=== PATIENT | female | born 1945 | race Caucasian/White ===

== ENCOUNTER → 2020-04-04 14:38 | Outpatient (BNVA) | payer MEDICARE, BC, SELFPAY | PROVIDERS: PCP Family Medicine; Visit Provider Internal Medicine Cardiovascular Disease | DX: E78.5 Hyperlipidemia, unspecified (principal); I48.0 Paroxysmal atrial fibrillation; Z87.891 Personal history of nicotine dependence | CPT/HCPCS: 93005; 99212 ==

== ENCOUNTER 2020-04-11 10:02 | Outpatient (REF) | payer MEDICARE, BC, SELFPAY ==
[2020-04-11 15:02] LABS: Anion Gap 13 (12-20); Blood Urea Nitrogen 29 mg/dL (9-16); Calcium 9.1 mg/dL (8.4-10.2); Carbon Dioxide 28 mmol/L (22-29); Chloride 103 mmol/L (96-108); Cholesterol 195 mg/dL; Estimated Glomerular Filt Rate 55; Glucose Random 82 mg/dL (60-115); HDL Cholesterol 53 mg/dL; LDL Cholesterol Calculated 124 mg/dl; Sodium 139 mmol/L (135-145); Triglycerides 94 mg/dL
[2020-04-11 15:08] LABS: Alanine Aminotransferase 16 U/L (0-31)
== END 2020-04-11 10:03 | disposition home or self-care (01) ==
LOC: HO.10HDL 10:02
PROVIDERS: Absent Provider Family Medicine; PCP Family Medicine; Visit Provider Internal Medicine Cardiovascular Disease
DX: E78.5 Hyperlipidemia, unspecified (principal); E78.00 Pure hypercholesterolemia, unspecified; I48.0 Paroxysmal atrial fibrillation; I10 Essential (primary) hypertension; Z79.899 Other long term (current) drug therapy
CPT/HCPCS: 36415; 80048; 80061; 82550; 84460

== ENCOUNTER 2020-06-19 08:33 | Outpatient (REF) | payer MEDICARE, BC, SELFPAY ==
[2020-06-19 10:40] LABS: Cholesterol 156 mg/dL; HDL Cholesterol 52 mg/dL; LDL Cholesterol Calculated 85 mg/dl; Triglycerides 95 mg/dL
== END 2020-06-19 08:34 | disposition home or self-care (01) ==
LOC: HO.10HDL 08:33
PROVIDERS: Absent Provider Family Medicine; Visit Provider Internal Medicine Cardiovascular Disease
DX: E78.5 Hyperlipidemia, unspecified (principal)
CPT/HCPCS: 36415; 80061; 82550

== ENCOUNTER 2020-08-04 08:32 | Outpatient (REF) | payer MEDICARE, BC, SELFPAY ==
--- NOTE | ~2020-08-04 | FL_ITS ---
EXAMINATION: XR FLUOROSCOPY UPPER GI WITH AIR CLINICAL INFORMATION: Epigastric pain, GERD and chest pain. COMPARISON: None TECHNIQUE: Routine upper GI contrast study was performed in upright position following oral administration of thick barium and effervescent granules. FINDINGS: Following oral administration of thick barium and effervescent granules in upright view there is normal perfusion bolus from the oral cavity through the pharynx, esophagus into stomach without any evidence of obstruction, narrowing or stricture. No laryngeal penetration or aspiration seen. There is no intraluminal filling defect. On. Placing patient supine and prone the course, caliber and peristalsis of the stomach and duodenal bulb is normal. There is mild gastroesophageal reflux without hiatal hernia. The mucosal pattern of stomach, duodenal bulb and the sweep is normal. FLUOROSCOPY TIME: 1.9 minutes DOSE AREA PRODUCT: 18.7 uGy-m2 (microgray-meter squared) FL/FL upper GI w air IMPRESSION: Mild gastroesophageal reflux without hiatal hernia. Rest of the upper GI exam is unremarkable.
== END 2020-08-04 08:33 | disposition home or self-care (01) ==
LOC: HO.XRAY 08:32
PROVIDERS: Absent Provider Internal Medicine Cardiovascular Disease; PCP Family Medicine; Visit Provider Family Medicine
DX: R10.13 Epigastric pain (principal); K21.9 Gastro-esophageal reflux disease without esophagitis
CPT/HCPCS: 74246

== ENCOUNTER 2020-10-18 10:39 | Outpatient (REF) | payer MEDICARE, BC, SELFPAY ==
[2020-10-18 11:40] LABS: MANUAL DIFF FLAG NO
[2020-10-18 11:43] LABS: Basophils Percent Auto 0.8 % (0-2); Eosinophils Absolute Auto 0.1 X10*3/uL (0.0-0.4); Eosinophils Percent Auto 1.9 % (0-4); Hematocrit 39.2 % (37-47); Hemoglobin 12.8 g/dl (12.0-16.0); Imm Gran Abs Auto 0.01 X10*3/uL (0.00-0.03); Imm Gran Pct Auto 0.2 % (0.0-0.4); Lymphocytes Absolute Auto 2.3 X10*3/uL (1.2-4.9); Lymphocytes Percent Auto 43.5 % (20-40); Mean Corpuscular HGB Conc 32.7 g/dl (31.0-35.0); Mean Corpuscular Hemoglobin 31.6 pg (27.0-33.0); Mean Corpuscular Volume 96.8 fL (80-98); Mean Platelet Volume 10.8 fL (9.4-12.3); Monocytes Absolute Auto 0.6 X10*3/uL (0.1-1.2); Monocytes Percent Auto 10.9 % (2-11); Neutrophils Absolute Auto 2.2 X10*3/uL (2.0-8.3); Neutrophils Percent Auto 42.7 % (45-73); Platelet Count 218 X10*3/uL (160-400); Red Blood Count 4.05 X10*6/uL (4.20-5.50); Red Cell Distribution Width 12.7 % (11.0-16.0); White Blood Count 5.2 X10*3/uL (4.8-10.8)
[2020-10-18 12:10] LABS: Alanine Aminotransferase 16 U/L (0-31); Anion Gap 11 (12-20); Blood Urea Nitrogen 27 mg/dL (9-16); Carbon Dioxide 28 mmol/L (22-29); Chloride 104 mmol/L (96-108); Estimated Glomerular Filt Rate 54; Potassium 5.4 mmol/L (3.3-5.1); Sodium 138 mmol/L (135-145)
== END 2020-10-18 10:40 | disposition home or self-care (01) ==
LOC: HO.LAB 10:39
PROVIDERS: PCP Family Medicine; Referring Provider Internal Medicine Cardiovascular Disease; Visit Provider Family Medicine
DX: I48.0 Paroxysmal atrial fibrillation (principal); E78.00 Pure hypercholesterolemia, unspecified; Z79.899 Other long term (current) drug therapy; Z79.01 Long term (current) use of anticoagulants
CPT/HCPCS: 36415; 80051; 82550; 82565; 84460; 84520; 85025

== ENCOUNTER → 2021-04-05 10:47 | Outpatient (BNVA) | payer MEDICARE, BC, SELFPAY | PROVIDERS: PCP Family Medicine; Visit Provider Internal Medicine Cardiovascular Disease | DX: I48.0 Paroxysmal atrial fibrillation (principal); E78.5 Hyperlipidemia, unspecified | CPT/HCPCS: 93005; 99212 ==

== ENCOUNTER 2021-04-10 09:02 | Outpatient (REF) | payer MEDICARE, BC, SELFPAY ==
[2021-04-10 10:13] LABS: Hemoglobin 12.7 g/dl (12.0-16.0); Mean Corpuscular HGB Conc 32.6 g/dl (31.0-35.0); Mean Corpuscular Hemoglobin 31.3 pg (27.0-33.0); Mean Corpuscular Volume 96.1 fL (80.0-98.0); Mean Platelet Volume 10.9 fL (9.4-12.3); Platelet Count 231 X10*3/uL (160-400); Red Blood Count 4.06 X10*6/uL (4.20-5.50); Red Cell Distribution Width 12.8 % (11.0-16.0); White Blood Count 5.7 X10*3/uL (4.8-10.8)
[2021-04-10 10:39] LABS: Anion Gap 11 (12-20); Blood Urea Nitrogen 22 mg/dL (9-16); Calcium 9.3 mg/dL (8.4-10.2); Carbon Dioxide 29 mmol/L (22-29); Chloride 106 mmol/L (96-108); Cholesterol 157 mg/dL; Estimated Glomerular Filt Rate 55; Glucose Random 88 mg/dL (60-115); HDL Cholesterol 45 mg/dL; LDL Cholesterol Calculated 93 mg/dl; Sodium 141 mmol/L (135-145); Triglycerides 96 mg/dL
== END 2021-04-10 09:03 | disposition home or self-care (01) ==
LOC: HO.10HDL 09:02
PROVIDERS: Absent Provider Family Medicine; Visit Provider Internal Medicine Cardiovascular Disease
DX: I48.0 Paroxysmal atrial fibrillation (principal); I25.10 Atherosclerotic heart disease of native coronary artery without angina pectoris
CPT/HCPCS: 36415; 80048; 80061; 85027

== ENCOUNTER 2021-07-18 12:06 | Outpatient (REF) | payer MEDICARE, BC, SELFPAY ==
[2021-07-18 13:14] LABS: Alanine Aminotransferase 20 U/L (0-31)
== END 2021-07-18 12:07 | disposition home or self-care (01) ==
LOC: HO.10HDL 12:06
PROVIDERS: Visit Provider Family Medicine
DX: E78.00 Pure hypercholesterolemia, unspecified (principal); Z79.899 Other long term (current) drug therapy
CPT/HCPCS: 36415; 82550; 84460

== ENCOUNTER → 2022-04-09 12:38 | Outpatient (BNVA) | payer MEDICARE, BC, SELFPAY | PROVIDERS: PCP Family Medicine; Referring Provider Family Medicine; Visit Provider Internal Medicine Cardiovascular Disease | DX: I48.0 Paroxysmal atrial fibrillation (principal); I49.3 Ventricular premature depolarization; E78.5 Hyperlipidemia, unspecified; Z79.01 Long term (current) use of anticoagulants; Z79.899 Other long term (current) drug therapy | CPT/HCPCS: 93005; 99212 ==

== ENCOUNTER 2022-04-16 08:49 | Outpatient (REF) | payer MEDICARE, BC, SELFPAY ==
[2022-04-16 10:15] LABS: Anion Gap 12 (12-20); Blood Urea Nitrogen 23 mg/dL (9-16); Calcium 9.4 mg/dL (8.4-10.2); Carbon Dioxide 28 mmol/L (22-29); Chloride 105 mmol/L (96-108); Cholesterol 168 mg/dL; Estimated Glomerular Filt Rate 55; Glucose Random 91 mg/dL (60-115); HDL Cholesterol 51 mg/dL; LDL Cholesterol Calculated 97 mg/dl; Potassium 5.1 mmol/L (3.3-5.1); Sodium 140 mmol/L (135-145); Triglycerides 102 mg/dL
== END 2022-04-16 08:50 | disposition home or self-care (01) ==
LOC: HO.LAB 08:49
PROVIDERS: PCP Family Medicine; Referring Provider Family Medicine; Visit Provider Internal Medicine Cardiovascular Disease
DX: I25.10 Atherosclerotic heart disease of native coronary artery without angina pectoris (principal); I48.0 Paroxysmal atrial fibrillation
CPT/HCPCS: 36415; 80048; 80061

== ENCOUNTER 2023-01-20 10:47 | Outpatient (REF) | payer MEDICARE, BC, SELFPAY ==
--- NOTE | ~2023-01-20 | XR_ITS ---
EXAMINATION: XR CHEST CLINICAL INFORMATION: Cough and wheezing. COMPARISON: 01/18/2017 TECHNIQUE: 2 views of the chest were obtained. FINDINGS: The lungs are well expanded. No focal consolidation. No pleural effusion. Cardiac silhouette is unchanged. XR/XR chest 2V IMPRESSION: No acute abnormality.
== END 2023-01-20 10:48 | disposition home or self-care (01) ==
LOC: HO.XRAY 10:47
PROVIDERS: PCP Family Medicine; Visit Provider Family Medicine
DX: R05.9 Cough, unspecified (principal); R06.2 Wheezing
CPT/HCPCS: 71046

== ENCOUNTER 2023-01-22 12:26 | Emergency (ER) | payer MEDICARE, BC, SELFPAY ==
[2023-01-22 12:35] VITALS: BP 165/70; PULSE 69; O2SAT 96
[2023-01-22 12:46] VITALS: BP 171/73; PULSE 68; RESP 17; TEMP 36.7; O2SAT 96; BMI 22.1
--- NOTE | 2023-01-22 13:18 | ED_ITS ---
HPI - General Adult General Chief complaint: General Medical Stated complaint: SUDDEN BURNING SEN FROM LEGS TO HEAD PER EMS Time Seen by Provider: 01/22/23 12:47 Source: patient and family (, return) Mode of arrival: EMS Limitations: no limitations History of Present Illness HPI narrative: 77-year-old female who presents emergency department for evaluation of a warm sensation that started in her feet spread throughout her entire body to cover her chest but spares her head and neck. The patient states she has had cold- like symptoms for 3 weeks with symptoms including cough productive of mucus and postnasal drip. Patient states that she did see her PCP Dr. Olmedo who advised her to take Robitussin DM. She states she was taking 20 mL every 4 hours up to 6 times a day. Patient also states she had an outpatient chest x-ray done at [facility] which was interpreted as no acute abnormalities by the radiologist. The patient states that Friday (01/19/2023-3 days prior to evaluation) at 17:00 hours while she was lying on the sofa she had a sudden onset of a warm sensation that started her feet, traveled up her entire body to cover her chest but spared her neck. She states sensation lasted approximately 2-3 minutes and then resolved. She had no other concerning symptoms associated with this warm feeling. Today, her has an appointment at the [facility] for dental procedure. The patient states she was sitting in a chair waiting when she again had that sensation of warmth starting at her feet extending up her body to her chest but sparing her neck and head. The sensation lasted approximately 5 minutes. She looked at her pulse on her Fitbit and it was 93 which she states is high for her. An ambulance was called hand the patient states that her systolic blood pressure was 187 which is very high for her pain. Related Data Home Medications Medication Instructions Recorded Confirmed esomeprazole magnesium 40 mg 40 mg PO DAILY 04/04/20 04/09/22 capsule,delayed release lorazepam 0.5 mg tablet 0.25 mg PO Q12H PRN 04/04/20 04/09/22 methenamine hippurate 1 gram tablet 1 g PO BID 04/04/20 04/09/22 multivitamin 1 tab PO DAILY 04/04/20 04/09/22 ascorbate calcium (vitamin C) 500 500 mg PO DAILY 04/05/21 04/09/22 mg tablet lactobacillus combination no.9 4 4,000 mmu cells PO DAILY 04/05/21 04/09/22 billion cell capsule (Adult 50 Plus Probiotic) magnesium 200 mg tablet 200 mg PO DAILY 04/09/22 04/09/22 Previous Rx's Medication Instructions Recorded apixaban 5 mg tablet (Eliquis) 5 mg PO BID #180 tabs 03/19/22 atorvastatin 40 mg tablet 40 mg PO DAILY #90 tabs 09/16/22 metoprolol succinate 25 mg 25 mg PO BEDTIME #90 tabs 01/06/23 tablet,extended release 24 hr Allergies Allergy/AdvReac Type Severity Reaction Status Date / Time nitrofurantoin Allergy Intermediate SWELLING Unverified 12/09/19 17:13 [From MACROBID] Sulfa (Sulfonamide Allergy Intermediate SWELLIING Unverified 12/09/19 17:13 Antibiotics) [SULFA (SULFONAMIDE ANTIBIOTICS)] scallops [SCALLOPS] AdvReac Intermediate VOMITING Unverified 12/09/19 17:13 [facility] Past Medical History Medical History Hyperlipidemia Paroxysmal atrial fibrillation Surgical History Hx of hammer toe correction Family History Family History Father AAA (abdominal aortic aneurysm) CVD (cardiovascular disease) Mother No problems noted. Social History Social History Smoked in Last 30 Days: No Use of substances other than those prescribed or required for medical reasons: No Advance Directives: Yes Advance Directives Information Provided: No Advance Directives on File: No Physical Exam ED Vital Signs: Vital Signs - 24 hr 01/22/23 12:46 01/22/23 14:55 Temperature 98.1 F Pulse Rate 68 68 Respiratory Rate 17 16 Blood Pressure 171/73 H 145/71 H Pulse Oximetry 96 96 Oxygen Delivery Method Room Air Room Air BMI result Body Mass Index 22.1 Vital sign initially revealed an elevated blood pressure of 171/73, this improved to 140 5/7 without any treatment. Exam General: Awake, alert in no distress Head: Normocephalic, atraumatic EENT: PERRL, Lids normal, sclera normal, conjunctiva normal, nose normal , ears normal, throat without erythema or exudates Neck: Supple, no adenopathy, no trachea midline or C-spine tenderness Lung: breath sounds symmetric, no wheezing, rales or rhonchi Chest: symmetric movement, nontender Heart: regular rate and rhythm, normal S1, S2 no murmurs or rubs Abdomen: soft, non-tender, nondistended, normal bowel sounds Back: no vertebral tenderness, no CVAT Extremities: no deformities, moves all extremities symmetrically Skin: no rashes, no lesion, normal color and warmth Neuro: Awake, alert, oriented, normal speech, cranial nerves intact, moves all extremities symmetrically Psych: Pleasant, cooperative Medical Decision Making Medical Decision Making MDM Narrative: 77-year-old female who presents emergency department for evaluation of a warm sensation that started in her feet spread throughout her entire body to cover her chest but spares her head and neck x2-with 1 episode being 3 days prior and 2nd episode being prior to coming to emergency department. Patient states that at the time of the event her pulse was 93. Patient has had upper respiratory symptoms including productive cough and postnasal drip x3 weeks. Patient had a negative chest x-ray done yesterday patient has been taking Robitussin DM 10 mL every 4 for several days. Vital signs did reveal elevated systolic blood pressures Physical examination was unremarkable. 15:31 Patient's laboratory evaluation was unremarkable on patient's high sensitive troponin I was below detectable limits the patient's TSH was normal . Patient's 12 EKG was normal and chest x-ray from yesterday was unremarkable. At this time I do not have a clear etiology for the patient's symptoms. Patient was advised to check your blood pressure 3 times a week, record these readings and review them with her PCP She does have follow-up appointment tomorrow with her PCP, she was advised return emergency department sooner if her symptoms get worse if she develops any new symptoms that were concerning to her. Differential Diagnosis Differential Diagnoses: The differential diagnosis associated with the presentation includes Differential diagnosis includes but is not limited to myocardial infarction, stroke, adverse reaction to Robitussin DM, thyroid dysfunction, electrolyte abnormality, paresthesia, pheochromocytoma Admission/Observation Consideration of admission/observation: Escalation of care including admission/observation considered Lab Data My interpretation patient's laboratory evaluation as follows: CBC was normal. CMP was normal. TSH was normal. High sensitive troponin I was below detectable limits. 01/22/23 13:33 01/22/23 13:33 Labs: Lab Results 01/22/23 Range/Units 13:33 WBC 6.4 (4.8-10.8) X10*3/uL RBC 4.06 L (4.20-5.50) X10*6/uL Hgb 12.9 (12.0-16.0) g/dl Hct 38.6 (37.0-47.0) % MCV 95.1 (80.0-98.0) fL MCH 31.8 (27.0-33.0) pg MCHC 33.4 (31.0-35.0) g/dl RDW 12.5 (11.0-16.0) % Plt Count 219 (160-400) X10*3/uL MPV 9.9 (9.4-12.3) fL Immature Gran % (Auto) 0.3 (0.0-0.4) % Neut % (Auto) 57.6 (45-73) % Lymph % (Auto) 31.1 (20-40) % Colbert % (Auto) 8.8 (2-11) % Eos % (Auto) 1.3 (0-4) % Baso % (Auto) 0.9 (0-2) % Lymph # (Auto) 2.0 (1.2-4.9) X10*3/uL Colbert # (Auto) 0.6 (0.1-1.2) X10*3/uL Eos # (Auto) 0.1 (0.0-0.4) X10*3/uL Baso # (Auto) 0.1 (0.0-0.2) X10*3/uL Abs Immat Gran (auto) 0.02 (0.00-0.03) X10*3/uL Absolute Neuts (auto) 3.7 (2.0-8.3) x10*3/uL Absolute Nucleated RBC 0.000 (0.0-0.012) X10*3/uL Nucleated RBC % (auto) 0.0 (0.0-0.2) /100WBC Sodium 136 (135-145) mmol/L Potassium 4.7 (3.3-5.1) mmol/L Chloride 105 (96-108) mmol/L Carbon Dioxide 22 (22-29) mmol/L Anion Gap 14 (12-20) BUN 23 H (9-16) mg/dL Creatinine 0.99 (0.5-1.4) mg/dL Estim Creat Clear Calc 44.5 Estimated GFR 54 Random Glucose 91 (60-115) mg/dL Calcium 9.7 (8.4-10.2) mg/dL Magnesium 2.4 (1.6-2.6) mg/dL Total Bilirubin 0.4 (0.0-1.0) mg/dL AST 32 H (5-31) U/L ALT 21 (0-31) U/L Alkaline Phosphatase 62 (39-117) U/L Troponin I High Sens < 2.7 (<3.5-17.0) ng/L Total Protein 7.4 (6.5-8.0) g/dL Albumin 4.3 (3.5-5.0) g/dL TSH 1.23 (0.32-4.0) uIU/mL Independent Interpretation I performed an independent interpretation of an: EKG Interpretation: My interpretation patient's 12 EKG done at 13:43 hours is as follows: Normal sinus rhythm rate of 64, normal SC interval, QRS duration QTC interval, ST segment depression, inverted T-wave in lead 3, no PACs, no PVCs-this is a normal EKG, EKG dated 01/19/2017 Independent Historian Clinical information obtained from an independent historian. History obtained from or confirmed by: Spouse Discharge Plan Discharge Clinical Impression: Paresthesia Patient Disposition: Home, Self-Care Instructions: Paresthesia (ED) Additional Instructions: Your complete blood count, comprehensive metabolic panel, troponin and thyroid screening test were all normal which is reassuring Your EKG was unremarkable pain Your chest x-ray from yesterday was normal pain At this time I do not have a clear cause for the warm sensation(paresthesia). It is possible could be related to the Robitussin DM that your taking. I want you did check your blood pressures 3 times a week on Mondays, Wednesdays and Fridays, in the morning when your feeling well. Write down these blood pressures and to review them with your doctor to see if you need any change in your blood pressure medications. Follow-up with your doctor as scheduled tomorrow. Please return to the emergency department if your symptoms get worse or if you develop any symptoms that are concerning to you. Prescriptions: No Action Eliquis 5 mg tablet 5 mg PO BID Qty: 180 3RF atorvastatin 40 mg tablet 40 mg PO DAILY Qty: 90 3RF metoprolol succinate 25 mg tablet extended release 24 hr 25 mg PO BEDTIME Qty: 90 3RF methenamine hippurate 1 gram tablet 1 g PO BID esomeprazole magnesium 40 mg capsule,delayed release(DR/EC) 40 mg PO DAILY lorazepam 0.5 mg tablet 0.25 mg PO Q12H PRN multivitamin Tablet 1 tab PO DAILY magnesium 200 mg tablet 200 mg PO DAILY Adult 50 Plus Probiotic 4 billion cell capsule 4,000 mmu cells PO DAILY Rx Instructions: administer with a meal ascorbate calcium (vitamin C) 500 mg tablet 500 mg PO DAILY
--- NOTE | 2023-01-22 13:19 | ECG_ITS ---
Test Reason : PALPITATIONS Blood Pressure : / mmHG Vent. Rate : 064 BPM Atrial Rate : 064 BPM P-R Int : 158 ms QRS Dur : 078 ms QT Int : 410 ms P-R-T Axes : 033 016 032 degrees QTc Int : 422 ms Normal sinus rhythm Normal ECG When compared with ECG of 19-JAN-2017 11:56, No significant change was found Referred By: Aristeo Barcenas Electronically Signed By:AMRITA NIXON MD
[2023-01-22 13:39] LABS: MANUAL DIFF FLAG NO
[2023-01-22 13:42] LABS: Basophils Absolute Auto 0.1 X10*3/uL (0.0-0.2); Basophils Percent Auto 0.9 % (0-2); Eosinophils Absolute Auto 0.1 X10*3/uL (0.0-0.4); Eosinophils Percent Auto 1.3 % (0-4); Hematocrit 38.6 % (37.0-47.0); Hemoglobin 12.9 g/dl (12.0-16.0); Imm Gran Abs Auto 0.02 X10*3/uL (0.00-0.03); Imm Gran Pct Auto 0.3 % (0.0-0.4); Lymphocytes Percent Auto 31.1 % (20-40); Mean Corpuscular HGB Conc 33.4 g/dl (31.0-35.0); Mean Corpuscular Hemoglobin 31.8 pg (27.0-33.0); Mean Corpuscular Volume 95.1 fL (80.0-98.0); Mean Platelet Volume 9.9 fL (9.4-12.3); Monocytes Absolute Auto 0.6 X10*3/uL (0.1-1.2); Monocytes Percent Auto 8.8 % (2-11); Neutrophils Absolute Auto 3.7 x10*3/uL (2.0-8.3); Neutrophils Percent Auto 57.6 % (45-73); Platelet Count 219 X10*3/uL (160-400); Red Blood Count 4.06 X10*6/uL (4.20-5.50); Red Cell Distribution Width 12.5 % (11.0-16.0); White Blood Count 6.4 X10*3/uL (4.8-10.8)
[2023-01-22 13:57] LABS: Alanine Aminotransferase 21 U/L (0-31); Albumin Level 4.3 g/dL (3.5-5.0); Alkaline Phosphatase 62 U/L (39-117); Anion Gap 14 (12-20); Aspartate Amino Transferase 32 U/L (5-31); Bilirubin Total 0.4 mg/dL (0.0-1.0); Blood Urea Nitrogen 23 mg/dL (9-16); Calcium 9.7 mg/dL (8.4-10.2); Carbon Dioxide 22 mmol/L (22-29); Chloride 105 mmol/L (96-108); Creatinine Clr Calc Pharmacy 44.5; Estimated Glomerular Filt Rate 54; Glucose Random 91 mg/dL (60-115); Magnesium 2.4 mg/dL (1.6-2.6); Potassium 4.7 mmol/L (3.3-5.1); Sodium 136 mmol/L (135-145); Total Protein 7.4 g/dL (6.5-8.0)
[2023-01-22 14:01] LABS: Troponin-I High Sensitivity < 2.7 ng/L (<3.5-17.0)
[2023-01-22 14:17] LABS: TSH reflex Free T4 1.23 uIU/mL (0.32-4.0)
[2023-01-22 14:55] VITALS: BP 145/71; PULSE 68; RESP 16; O2SAT 96
== END 2023-01-22 15:57 | disposition home or self-care (01) ==
PROVIDERS: Emergency Provider Emergency Medicine Emergency Medical Services; PCP Family Medicine
DX: R20.2 Paresthesia of skin (principal); I48.0 Paroxysmal atrial fibrillation; E78.5 Hyperlipidemia, unspecified; Z79.01 Long term (current) use of anticoagulants; Z79.899 Other long term (current) drug therapy
CPT/HCPCS: 36415; 80053; 83735; 84443; 84484; 85025; 93005; 99284

== ENCOUNTER → 2023-04-03 10:50 | Outpatient (REF) | payer MEDICARE, BC, SELFPAY ==
--- NOTE | 2023-04-03 10:53 | CA_ITS ---
Transthoracic Echocardiogram Patient (Last, First, Middle): Gudelia Duggan, Gender: Female Date of : 1945 Age: 77 Procedure Date: 04/03/2023 Procedure Type: Transthoracic Echocardiogram Location: OP Height: 167.64 cm Weight: 58.06 kg BSA: 1.65 m2 Heart Rate: 60 bpm BP: 145 / 75 mmHg Budget Technician: AALIYAH Referring MD: Zach Turk MD Mortgage Loan Underwriter: Zach Turk MD Symptoms: I48.0 - Paroxysmal atrial fibrillation Study Quality: Adequate ECG Rhythm: Sinus Conclusions: - 1. Normal LV systolic function with LVEF of 60-65% with grade 1 diastolic dysfunction 2. Mild mitral and aortic regurgitation 3. Normal measured RV systolic pressure 4. No pericardial effusion Findings Left Ventricle Normal left ventricular size, thickness, and systolic function. The visually estimated ejection fraction is between 60-65%. Spectral Doppler is indicative of an impaired relaxation filling pattern. E/E prime ratio is <8, consistent with normal filling pressures. Evidence suggests grade I (mild) diastolic dysfunction. Peak GLS is -18.5%, within normal limits. Right Ventricle Normal right ventricular cavity size and systolic function. Atria The left atrium is likely dilated. There is lipomatous hypertrophy of the interatrial septum. There is no evidence of interatrial shunt. The right atrium is normal in size. Aortic Valve The aortic valve was not well visualized. There is mild calcification of the aortic valve. There is no aortic valve stenosis. There is mild aortic valve regurgitation. Mitral Valve There is mild anterior and posterior mitral leaflet thickening. There is mild mitral valve regurgitation. There is no mitral valve stenosis. Pulmonic Valve The pulmonic valve is likely normal. Tricuspid Valve Normal tricuspid valve structure. There is mild tricuspid valve regurgitation. The right ventricular systolic pressure is normal. The right ventricular systolic pressure is 31 mmHg. Normal right atrial pressure. There is no evidence of pulmonary hypertension. Great Vessels All visible segments of the aorta are normal in size. The pulmonary artery was not well visualized. There is no dilatation of the ascending aorta measuring 3.40 cm. Venous The inferior vena cava is normal in size and collapses greater than 50% with inspiration. Pericardium/Pleural There is no evidence of pericardial effusion. Prior Study Comparison Changes noted compared to prior study dated: 09/29/2019. RV systolic pressure is within normal limits Measurements 2D Linear Measurements IVSd: 1.28 0.6-0.9/0.6-1.0 cm LVIDd: 4.16 3.9-5.3/4.2-5.9 cm LVIDd Index: 2.52 2.4-3.2/2.2-3.1 cm/m2 LVIDs: 2.70 2.0-3.6 cm LVPWd: 0.95 0.7-1.1 cm LA Diam: 4.00 2.7-3.8/3.0-4.0 cm LAIDs Index: 2.42 1.5-2.3 cm/m2 LV Mass: 196.36 67-162/88-224 g LV Mass Index: 119.00 43-95/49-115 g/m2 LVOT Diam: 1.90 3.0+(-)1.3 cm 2D Systolic Function EF 4C: 66.60 >55% EF 2C: 59.30 >55% EF BiP: 63.40 >55% Mitral Valve MV Pk E: 0.60 MV PK A: 0.55 MV Decel Time: 150.00 E/A: 1.10 E'Lateral: 8.49 E'Medial: 5.55 E/E' Med: 10.80 E/E' Lat: 7.10 PHT: 44.00 MVA PHT: 5.00 Decel [place]: 4.00 Aortic Valve AoV Pk Matt: 1.34 AoV Mn Matt: 0.95 AoV VTI: 0.32 AoV Pk Grad: 7.00 Aov Mn Grad: 4.00 GAIL Cont.VTI: 2.02 AI Pk Matt: 4.31 AI [place]: 1.88 LVOT LVOT Pk Matt: 0.98 LVOT Mn Matt: 0.64 LVOT VTI: 0.23 LVOT Pk Grad: 4.00 LVOT Mn Grad: 2.00 LVOT Diam: 1.90 LVOT Area: 2.84 Diastolic Function MV Pk E: 0.60 MV Pk A: 0.55 E/A: 1.10 E'Medial: 5.55 E/E' Med: 10.80 E' Laterial: 8.49 E/E' Lat: 7.10 Right Ventricle TAPSE (mm): 24.60 TVS' Matt: 12.60 Tricuspid Valve TR Pk Matt: 2.64 TR Pk Grad: 28.00 RA Press: 3.00 RVSP: 31.00 Great Vessels Aorta Sinus of Valsalva: 3.10 2.0-3.5 cm Ao Asc: 3.40 2.1-3.4 cm Pulmonary Valve PV Pk Matt: 0.83 Peak PV Grad: 3.00 Updated in Other Vendor System with Status of Final Zach Turk MD electronically signed on 04/04/2023 12:41:45 PM with status of Final
== END ==
LOC: HO.CARD 10:50
PROVIDERS: PCP Family Medicine; Visit Provider Internal Medicine Cardiovascular Disease
DX: I48.0 Paroxysmal atrial fibrillation (principal)
CPT/HCPCS: 93306; 93356

== ENCOUNTER → 2023-04-03 10:53 | Outpatient (BNV) | payer MEDICARE, BC, SELFPAY | PROVIDERS: PCP Family Medicine; Visit Provider Internal Medicine Cardiovascular Disease | DX: I35.1 Nonrheumatic aortic (valve) insufficiency (principal); I34.0 Nonrheumatic mitral (valve) insufficiency | CPT/HCPCS: 93306 ==

== ENCOUNTER 2023-04-10 11:11 | Outpatient (AMB) | payer MEDICARE, BC, SELFPAY ==
--- NOTE | 2023-04-10 11:23 | MHC.OFFVIS ---
Intake Vital Signs 04/10/23 11:24 Height 5 ft 6 in Weight 127 lb 13.89 oz BMI 20.6 BP 120/80 Blood Pressure Location Lt brachial Position Sitting Pulse 57 Intake Visit Reasons: 1 yr f/up Intake Note: 1 year follow-up with ekg feeling ok Handkerchief Sample Clerk Required: No Allergies nitrofurantoin [From MACROBID] Allergy (Intermediate, Unverified 12/09/19 17:13) SWELLING Sulfa (Sulfonamide Antibiotics) [SULFA (SULFONAMIDE ANTIBIOTICS)] Allergy (Intermediate, Unverified 12/09/19 17:13) SWELLIING scallops [SCALLOPS] Adverse Reaction (Intermediate, Unverified 12/09/19 17:13) VOMITING Medication List - Last Reconciled 04/10/23 by Zach Turk MD apixaban (Eliquis) 5 mg PO BID ascorbate calcium (vitamin C) 500 mg PO DAILY atorvastatin 40 mg PO DAILY esomeprazole magnesium 40 mg PO DAILY lactobacillus combination no.9 (Adult 50 Plus Probiotic) 4,000 mmu cells PO DAILY lorazepam 0.25 mg PO Q12H PRN magnesium 200 mg PO DAILY methenamine hippurate 1 g PO BID metoprolol succinate ER 25 mg PO BEDTIME multivitamin 1 tab PO DAILY sertraline 25 mg PO DAILY HPI HPI Comments History of Present Illness Details Gudelia comes for follow-up. She has increased stress related to her 's health. However overall from cardiac perspective she has been doing well. She is noticed slightly elevated blood pressure in the upper 130 range with increased stress. No prolonged palpitations irregular heartbeat or skipped heartbeats. Denies any other cardiac symptoms. No exertional chest pain. No shortness of breath, orthopnea, PND. No bleeding issues or neurologic events. Takes all her medications regularly. Recent echocardiogram shows normal LV systolic function with mild mitral and aortic regurgitation with borderline left atrial enlargement PFSH Medical History Paroxysmal atrial fibrillation Hyperlipidemia Surgical History Hx of hammer toe correction Family History Father AAA (abdominal aortic aneurysm) CVD (cardiovascular disease) Mother No problems noted. Review of Systems Const Denies chills, Denies fatigue, Denies fever(s), Denies frequent falls, Denies weakness, Denies weight gain and Denies weight loss ENT Denies dizziness Card Denies chest pain, Denies leg edema, Denies lightheadedness, Denies palpitations, Denies dyspnea, Denies dyspnea on exertion, Denies orthopnea and Denies other (loss of consciousness) Resp Denies cough, Denies dyspnea and Denies dyspnea on exertion GI Denies hematochezia and Denies change in stool character Musc Denies abnormal gait, Denies muscle weakness, Denies numbness, Denies radiating pain into limb and Denies tingling Neuro Denies abnormal gait, Denies dizziness, Denies frequent falls, Denies numbness, Denies tingling and Denies weakness Endo Denies fatigue and Denies palpitations Physical Exam Vital Signs: Last Vital Signs Pulse 57 04/10/23 11:24 BP 120/80 04/10/23 11:24 BMI result Body Mass Index 20.6 Const General: cooperative, comfortable, no acute distress, alert, awake and well groomed Nutritional Appearance: thin Orientation/consciousness: patient oriented x3 Limitations: no limitations Neck Neck: Yes trachea midline, Yes supple and Yes no JVD Chest Chest palpation & inspection: normal inspection of the chest Resp Effort & Inspection: normal respiratory effort Auscultation: clear to auscultation bilaterally Cardio Jugular venous distension: no JVD Palpation: normal PMI Rate: regular rate Rhythm: regular rhythm Heart sounds: S1 normal heart sound present and S2 normal heart sound present GI Auscultation: normal bowel sounds Skin General skin exam: no rashes or lesions noted Neuro General: patient oriented x3 and no focal motor deficits Extrem General: Yes no clubbing, cyanosis or edema Psych Appearance: grossly normal Office Procedures EKG Details: EKG shows sinus bradycardia 57 beats per minute otherwise normal EKG [id number], Complete Assessment & Plan Assessment & Plan (1) Paroxysmal atrial fibrillation: Code(s): I48.0 - Paroxysmal atrial fibrillation Plan: Patient with highly symptomatic paroxysmal atrial fibrillation has remained suppressed on metoprolol therapy. Continue the same. Has done very well with rhythm control approach will continue pursue rhythm control approach. Continue full oral anticoagulation, currently on Eliquis 5 mg b.i.d.. Semi annual renal function test should be pursued. Continue participate in stress mitigation strategies. Continue avoid stimulants. (2) PVCs (premature ventricular contractions): Code(s): I49.3 - Ventricular premature depolarization Plan: PVCs also are doing well at this point time. Continue metoprolol therapy. Avoidance of stimulants was discussed. No change in therapy. Blood pressure is well optimized. Hyperlipidemia with well optimized LDL. At least target goal LDL less than 100 mg/dL. Continue maintain activity level as tolerated. Will follow up in the clinic in 1 year's time, sooner p.r.n.. Thank you for allowing me to partake in her care Coding Level of Care Code Est Pt Level 4 (04053) Diagnoses Paroxysmal atrial fibrillation I48.0 PVCs (premature ventricular contractions) I49.3 CPT Codes EKG - CPT: 38230-[id number], Complete ([id number])
[2023-04-10 11:24] VITALS: BP 120/80; PULSE 57; BMI 20.6
== END 2023-04-10 11:51 | disposition home or self-care (01) ==
PROVIDERS: Visit Provider Internal Medicine Cardiovascular Disease
DX: I48.0 Paroxysmal atrial fibrillation (principal); I49.3 Ventricular premature depolarization
CPT/HCPCS: 93010; 99214

== ENCOUNTER → 2023-04-10 11:11 | Outpatient (BNVA) | payer MEDICARE, BC, SELFPAY | PROVIDERS: Visit Provider Internal Medicine Cardiovascular Disease | DX: I48.0 Paroxysmal atrial fibrillation (principal); I49.3 Ventricular premature depolarization | CPT/HCPCS: 93005; 99212 ==

== ENCOUNTER 2024-04-06 10:31 | Outpatient (AMB) | payer MEDICARE, BC, SELFPAY ==
[2024-04-06 11:08] VITALS: BP 124/78; PULSE 59; BMI 20.6
--- NOTE | 2024-04-06 11:08 | A.OFFVIS_ITS ---
Vital Signs 04/06/24 11:08 Height 5 ft 6 in Weight 127 lb 13.89 oz BMI 20.6 BP 124/78 Blood Pressure Location Lt brachial Position Sitting Pulse 59 Intake Visit Reasons: follow up Intake Note: Follow-up with ekg Tonnage Compilation Clerk Required: No Allergies nitrofurantoin [From MACROBID] Allergy (Intermediate, Unverified 12/09/19 17:13) SWELLING Sulfa (Sulfonamide Antibiotics) [SULFA (SULFONAMIDE ANTIBIOTICS)] Allergy (Intermediate, Unverified 12/09/19 17:13) SWELLIING scallops [SCALLOPS] Adverse Reaction (Intermediate, Unverified 12/09/19 17:13) VOMITING Medication List - Last Reconciled 04/06/24 by Zach Turk MD apixaban (Eliquis) 5 mg PO BID ascorbate calcium (vitamin C) 500 mg PO DAILY atorvastatin 40 mg PO DAILY esomeprazole magnesium 40 mg PO DAILY lactobacillus combination no.9 (Adult 50 Plus Probiotic) 4,000 mmu cells PO DAILY lorazepam 0.25 mg PO Q12H PRN magnesium 200 mg PO DAILY methenamine hippurate 1 g PO BID metoprolol succinate ER 25 mg PO BEDTIME multivitamin 1 tab PO DAILY sertraline 25 mg PO DAILY HPI Comments Details: Gudelia comes for annual follow-up. She has been doing very well. She is under lot of stress due to her 's health who is currently in hospice treatment. Patient has been doing well otherwise without any symptoms of palpitations. She occasionally feels sudden chest but no prolonged irregular heartbeat or fast heart rate. Takes all her medications. No lightheadedness, syncope. No exertional chest pain or shortness of breath. No orthopnea, PND, leg edema. No bleeding issues or neurologic events. [facility] Medical History Paroxysmal atrial fibrillation Hyperlipidemia Surgical History Hx of hammer toe correction Family History Father AAA (abdominal aortic aneurysm) CVD (cardiovascular disease) Mother No problems noted. Review of Systems Const Denies chills, Denies fatigue, Denies fever(s), Denies frequent falls, Denies weakness, Denies weight gain and Denies weight loss ENT Denies dizziness Card Denies chest pain, Denies leg edema, Denies lightheadedness, Denies palpitations, Denies dyspnea, Denies dyspnea on exertion, Denies orthopnea and Denies other (loss of consciousness) Resp Denies cough, Denies dyspnea and Denies dyspnea on exertion GI Denies hematochezia and Denies change in stool character Musc Denies abnormal gait, Denies muscle weakness, Denies numbness, Denies radiating pain into limb and Denies tingling Neuro Denies abnormal gait, Denies dizziness, Denies frequent falls, Denies numbness, Denies tingling and Denies weakness Endo Denies fatigue and Denies palpitations Physical Exam Vital Signs: Last Vital Signs Pulse 59 04/06/24 11:08 BP 124/78 04/06/24 11:08 BMI result Body Mass Index 20.6 Office Procedures EKG Details: EKG shows sinus bradycardia otherwise normal EKG 09114-[id number], Complete Assessment & Plan Assessment & Plan (1) Paroxysmal atrial fibrillation: Code(s): I48.0 - Paroxysmal atrial fibrillation Category: Medical Plan: Highly symptomatic paroxysmal atrial fibrillation doing very well on current rhythm control approach. Currently not on any antiarrhythmic drug in his snow indication for the same as her atrial fibrillation burden is minimal. Continue full oral anticoagulation, currently on Eliquis 5 mg b.i.d.. Importance of semi annual renal function test was discussed. Avoidance of stimulants was discussed. Stress mitigation strategies was discussed. Advised to call me with any new symptoms. Continue rhythm control approach. (2) PVCs (premature ventricular contractions): Code(s): I49.3 - Ventricular premature depolarization Category: Medical Plan: PVCs with minimal burden. She was tolerating her metoprolol therapy well. Continue the same. Avoidance of stimulants was discussed. Stress mitigation strategies were discussed. Follow up in the clinic in 1 year's time, sooner p.r.n.. Thank you for allowing me to partake in his care Orders: Orders Basic Metabolic Panel Today I48.0 - Paroxysmal atrial fibrillation Lipid Panel Today I48.0 - Paroxysmal atrial fibrillation Coding Level of Care Code Est Pt Level 4 (60152) Complex EM visit Add On G2211 Diagnoses Paroxysmal atrial fibrillation I48.0 PVCs (premature ventricular contractions) I49.3 CPT Codes EKG - CPT: 78854-[id number], Complete ([id number])
--- OUTSIDE RECORDS SUMMARY | 2024-04-06 12:11 | XMS_ITS ---
Author Organization [facility] Address [address] [place] [address] Care Team Providers Care Senior Test Engineer Name Role Phone Filipe Ricci Unavailable [phone] ALLERGIES, ADVERSE REACTIONS, ALERTS Substance Code Code System Type Reaction Severity Status Start Date End Date scallops 212617 RxNorm Food allergy () 0 Seasonal (unlisted or unknown allergen) RxNorm () 0 Sulfa (Sulfonamide Antibiotics) RxNorm Drug allergy () 0 Bactrim 698127 RxNorm Drug allergy () 0 MEDICATIONS Medication Code Code System Start Date Stop Date Route Dosage Directions Fill Instructions atorvastatin calcium RxNorm 09/03/19 24 1 Nexium 0 RxNorm oral methenamine hippurate RxNorm 02/22/20 23 1 tobramycin 197929 RxNorm 10/22/19 24 ophthalmic (eye) 1 metoprolol succinate RxNorm 023 1 sertraline HCl RxNorm 05/14/19 24 1 Eliquis RxNorm PROBLEMS Problem Name Code Code System Start Date End Date Stat us Gastro-esophageal reflux disease 316286144 [facility] Active Essential (primary) hypertension 08266426 [facility] Active Cardiac arrhythmia, unspecified 42331593 [facility] Active Unspecified conjunctivitis 27810762977171866 [facility] 2023 Active Hordeolum externum left upper eyelid 910279753571221 [facility] 10/22/2023 Active ENCOUNTERS Encounter Diagnosis Code Code System Date Stat us Unspecified conjunctivitis 84781918600632726 [facility] Active Hordeolum externum left upper eyelid 177554706285293 [facility] 10/22/2023 Active IMMUNIZATIONS * None VITAL SIGNS Code Code System Vitals Name Date Value and Un its 8462-4 [facility] Blood Pressure-Diastolic 10/22/2023 77 mmHg 8480-6 [facility] Blood Pressure-Systolic 10/22/2023 1 28 mmHg 8867-4 [facility] Heart Rate 10/22/2023 68 /min 9279-1 [facility] Respiratory Rate 10/22/2023 17 /min 8310-5 [facility] Body Temperature 10/22/2023 97.4 F 05764-5 [facility] Oxygen Saturation 10/22/2023 97 % SOCIAL HISTORY * None PROCEDURES * None MEDICAL EQUIPMENT * Patient has no history of implantable devices ASSESSMENT * None TREATMENT PLAN Type Description Date MEDICATION Take 0.3 % drops 10/22/2023 ORDERS You were evaluated f or eye redness and discharge. Your history and exam is consistent with conjunctivitis. Clean hands frequently. If you touch your eyes, wash your hands immediately to prevent spread. Do not share towels or linens with other family members. Change linens frequently to prevent re-infection. Use the antibiotic as prescribed. DO NOT WEAR CONTACT LENSES until your finished treatment and then your symptoms have been completely resolved for five days Go to the ED immediately for increased eye pain, changes in vision, difficulty with vision, or any other new, concerning symptoms. Please see an decker operator in follow-up within 24-48 hours if your symptoms are not significantly improved. 10/22/2023 APPOINTMENT If not feeling merry r in 3 day(s), please see your primary care physician. If you do not have a primary care physician, please return to this clinic. 10/22/2023 Lab Tests None GOALS * None HEALTH CONCERNS * No Health Concerns FUNCTIONAL AND COGNITIVE STATUS * None CONSULTATION NOTES * None DISCHARGE SUMMARY NOTES * None HISTORY AND PHYSICAL NOTES * None IMAGING NOTES * None LABORATORY REPORT NARRATIVE NOTES * None PATHOLOGY REPORT NARRATIVE NOTES * None PROGRESS NOTES * None
== END 2024-04-06 11:36 | disposition home or self-care (01) ==
PROVIDERS: PCP Family Medicine; Visit Provider Internal Medicine Cardiovascular Disease
DX: I48.0 Paroxysmal atrial fibrillation (principal); I49.3 Ventricular premature depolarization
CPT/HCPCS: 93010; 99214; G2211

== ENCOUNTER → 2024-04-06 10:31 | Outpatient (BNVA) | payer MEDICARE, BC, SELFPAY | PROVIDERS: PCP Family Medicine; Visit Provider Internal Medicine Cardiovascular Disease | DX: I48.0 Paroxysmal atrial fibrillation (principal); I49.3 Ventricular premature depolarization; R00.1 Bradycardia, unspecified | CPT/HCPCS: 93005; 99212 ==

== ENCOUNTER 2025-01-10 14:48 | Outpatient (REF) | payer MEDICARE, BC, SELFPAY ==
[2025-01-10 16:04] LABS: MANUAL DIFF FLAG NO
[2025-01-10 16:21] LABS: Hematocrit 40.7 % (37.0-47.0); Hemoglobin 13.5 g/dl (12.0-16.0); Imm Gran Abs Auto 0.01 X10*3/uL (0.00-0.03); Imm Gran Pct Auto 0.2 % (0.0-0.4); Lymphocytes Absolute Auto 3.2 X10*3/uL (1.2-4.9); Mean Corpuscular HGB Conc 33.2 g/dl (31.0-35.0); Mean Corpuscular Hemoglobin 31.8 pg (27.0-33.0); Mean Corpuscular Volume 96.0 fL (80.0-98.0); NRBC Abs Auto 0.000 X10*3/uL (0.0-0.012); NRBC Pct Auto 0.0 /100WBC (0.0-0.2); Platelet Count 236 X10*3/uL (160-400); Red Blood Count 4.24 X10*6/uL (4.20-5.50); White Blood Count 6.5 X10*3/uL (4.8-10.8)
[2025-01-10 16:30] LABS: Appearance Urine Clear; Glucose Urine UA Negative (Negative); PH 6.0 (5.0-9.0); Specific Gravity - Urine 1.020 (1.005-1.025); UMIC TRIGGER UA YES
[2025-01-10 17:11] LABS: Alanine Aminotransferase 25 U/L (0-31); Albumin Level 5.0 g/dL (3.5-5.0); Alkaline Phosphatase 68 U/L (39-117); Anion Gap 13 (12-20); Aspartate Amino Transferase 39 U/L (5-31); Blood Urea Nitrogen 35 mg/dL (9-16); Calcium 9.8 mg/dL (8.4-10.2); Carbon Dioxide 26 mmol/L (22-29); Chloride 103 mmol/L (96-108); Estimated Glomerular Filt Rate 44; Potassium 4.4 mmol/L (3.3-5.1); Sodium 138 mmol/L (135-145); Total Protein 7.7 g/dL (6.5-8.0)
[2025-01-10 17:24] LABS: Total Protein Urine Random 15 mg/dL (<12)
== END 2025-01-10 14:49 | disposition home or self-care (01) ==
LOC: HO.LAB 14:48
PROVIDERS: PCP Physician Assistant Medical; Referring Provider Physician Assistant Medical; Visit Provider Internal Medicine Hypertension Specialist
DX: N18.30 Chronic kidney disease, stage 3 unspecified (principal); I48.91 Unspecified atrial fibrillation; K21.9 Gastro-esophageal reflux disease without esophagitis; N39.0 Urinary tract infection, site not specified; D17.9 Benign lipomatous neoplasm, unspecified; Z79.01 Long term (current) use of anticoagulants
CPT/HCPCS: 36415; 80053; 81001; 82570; 84156; 85025; 99202

== ENCOUNTER 2025-01-10 14:48 | Outpatient (AMB) | payer MEDICARE, BC, SELFPAY ==
[2025-01-10 14:52] VITALS: BP 118/68; PULSE 74; O2SAT 97; BMI 20.5
--- NOTE | 2025-01-10 14:52 | HO.NEPHOV_ITS ---
Vital Signs 01/10/25 14:52 Height 5 ft 6 in Weight 127 lb BMI 20.5 BP 118/68 Blood Pressure Location Lt brachial Position Sitting Pulse 74 Pulse Source Pulse Oximeter Pulse Oximetry (%) 97 Oxygen Delivery Method Room Air Intake Visit Reasons: INP: Chronic kidney Dz,confirmed Service Or Work Dispatcher Chief Required: No Accompanied by: Self / Same As Patient Allergies nitrofurantoin (From MACROBID) Allergy (Intermediate, Verified 01/10/25 14:54) SWELLING Sulfa (Sulfonamide Antibiotics) (SULFA (SULFONAMIDE ANTIBIOTICS)) Allergy (Intermediate, Verified 01/10/25 14:54) SWELLIING scallops (SCALLOPS) Adverse Reaction (Intermediate, Verified 01/10/25 14:54) VOMITING Medication List - Last Reconciled 01/10/25 by Cali Damon MD apixaban (Eliquis) 5 mg PO BID ascorbate calcium (vitamin C) 500 mg PO DAILY atorvastatin 40 mg PO DAILY coenzyme Q10 100 mg PO DAILY esomeprazole magnesium 40 mg PO DAILY lactobacillus combination no.9 (Adult 50 Plus Probiotic) 4,000 mmu cells PO DAILY lorazepam 0.25 mg (1/2 x 0.5 mg) PO Q12H PRN methenamine hippurate 1 g PO BID metoprolol succinate ER 25 mg PO BEDTIME HPI Comments Details: - The patient is a 79-year-old female presenting with evaluation of kidney function and management of chronic conditions. - Chronic Kidney Disease: Stable kidney function with recent creatinine increase to 1.2 mg/dL. - Atrial Fibrillation: Managed with metoprolol and anticoagulation, annual follow-ups. - GERD: Managed with omeprazole, dosage reduction planned. - Constipation: Managed with stool softeners and [place], dietary adjustments advised. - History of Oophorectomy: Bilateral oophorectomy for ovarian cysts. - History of Rib Fracture: Occurred two years ago, required surgery. - History of Wrist, Arm, Elbow, and Shoulder Fractures: Resulted from a fall, surgical repair done. - Urinary Tract Infections: Recurrent, recent infection treated, avoiding Bactrim. 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 Patient Instructions - Monitor kidney function with regular tests. - Reduce omeprazole dosage to every other day or as needed. - Increase fluid intake to support kidney health. - Continue metoprolol and anticoagulation therapy for atrial fibrillation. - Use stool softeners and [place] for constipation, and increase dietary fiber intake. - Avoid Bactrim for urinary tract infections and monitor for recurrence. [facility] Medical History (Updated 12/23/24 @ 13:27 by COLBY Jones) Constipation History of frequent urinary tract infections Pre-diabetes CKD (chronic kidney disease) Paroxysmal atrial fibrillation Hyperlipidemia Surgical History History of colonoscopy (~08/03/12) Hx of hammer toe correction Family History Father AAA (abdominal aortic aneurysm) CVD (cardiovascular disease) Mother No problems noted. [facility] History [facility] Patient Tobacco Use Status: Former Tobacco user e-Cigarette/Vaping Use: Former Use service: No Current occupational status: retired Cognitive needs: No Hearing needs: No Vision needs: Yes (rx glasses) Review of Systems Const Denies fever(s) and Denies weight loss Card Denies chest pain Resp Denies cough and Denies hemoptysis GI Denies abdominal pain, Denies diarrhea and Denies nausea Musc Denies back pain Neuro Denies focal weakness Physical Exam Vital Signs: Last Vital Signs Pulse 74 01/10/25 14:52 BP 118/68 01/10/25 14:52 Pulse Ox 97 01/10/25 14:52 Oxygen Delivery Method Room Air 01/10/25 14:52 BMI result Body Mass Index 20.5 Comfortable Neck supple no JVD. Lungs entry equal no rales. Heart S1-S2 heard no gallop or rub. Abdomen soft nontender. Neuro alert awake oriented. No asterixis. Extremities no edema. Results Reviewed Nephrology Results: Hgb, (12.0-16.0) 13.5 g/dl 01/10/25 WBC, (4.8-10.8) 6.5 X10*3/uL 01/10/25 Plt Count, (160-400) 236 X10*3/uL 01/10/25 Sodium, (135-145) 138 mmol/L 01/10/25 Potassium, (3.3-5.1) 4.4 mmol/L 01/10/25 Chloride, (96-108) 103 mmol/L 01/10/25 Carbon Dioxide, (22-29) 26 mmol/L 01/10/25 BUN, (9-16) 35 mg/dL H 01/10/25 Creatinine, (0.5-1.4) 1.19 mg/dL 01/10/25 Calcium, (8.4-10.2) 9.8 mg/dL 01/10/25 Urine Protein, (Neg-Trace) Trace mg/dL 01/10/25 Urine Creatinine 110.76 mg/dL 01/10/25 Assessment & Plan Assessment & Plan (1) CKD (chronic kidney disease): Code(s): N18.9 - Chronic kidney disease, unspecified Category: Medical Qualifiers: Chronic kidney disease stage: stage 3 (moderate) Chronic kidney disease stage 3 subtype: unspecified whether 3a or 3b Qualified Code(s): N18.30 - Chronic kidney disease, stage 3 unspecified Plan 1. Chronic Kidney Disease She probably has age-related nephron loss. There could be a component of hypoperfusion. A GN and SOUMYA on seem unlikely at this point. - Reduce omeprazole dosage. - Increase fluid intake. 2. Atrial Fibrillation - Continue metoprolol and anticoagulation. - Annual cardiology follow-up. 3. Gastroesophageal Reflux Disease (Gerd) - Reduce omeprazole to alternate days. 4. Constipation - Use stool softeners and [place]. - Increase fiber intake. 5. Urinary Tract Infections - Avoid Bactrim. - Monitor for recurrence. 6. Angiomyolipoma - No intervention needed. She will returned to office once the baseline workup is completed. Answered all her questions. Reassured her. Orders: Orders Complete Blood Count Auto Diff 01/10/25 N18.30 - Chronic kidney disease, stage 3 unspecified Comprehensive Met. Panel 01/10/25 N1.30 - Chronic kidney disease, stage 3 unspecified Creatinine Urine 01/10/25 N18.30 - Chronic kidney disease, stage 3 unspecified Total Protein Urine Random 01/10/25 N1.30 - Chronic kidney disease, stage 3 unspecified UA and rflx microscopic 01/10/25 N18.30 - Chronic kidney disease, stage 3 unspecified Coding Level of Care Code New Pt Level 4 (77127) Diagnoses Stage 3 chronic kidney disease, unspecified whether stage 3a or 3b CKD N18.30 Chronic kidney disease stage: stage 3 (moderate) Chronic kidney disease stage 3 subtype: unspecified whether 3a or 3b
--- OUTSIDE RECORDS SUMMARY | 2025-01-10 18:46 | XMS_ITS | Patient Health Record ---
[facility] Organization [facility] [address] Address [address] [place] [address] Care Team Providers Care Early Head Start Teacher Name Role Phone YUKI COOK Unavailable [phone] Allergies No Known Allergies Results Component Value Reference Range Notes US RETROPERITONEAL COMPLETE Reviewed date:12/08/2024 03:10:00 PM Interpretation: Performing Lab: Notes/Report: Note See Note [facility], a member of [employer] Patient Name: TERRY DUGGAN Date of : 1945 Reason for Exam: US renal Exam Date: 11/30/2024 [id number] EST Report Status: Final Ordering Provider: YUKI COOK PCP: CHRISTIAN CROWE History: Flank pain. Comparison: CT abdomen/pelvis 10/09/06 Findings: Real-time imaging of the kidneys was performed. The right kidney is normal in position and size, measuring 9.3 cm in length. The renal parenchymal echogenicity is mildly increased, suggesting underlying medical renal disease. There is no hydronephrosis. A 1.4 x 2.5 cm parapelvic cyst is seen in the interpolar area, unchanged from the previous study. A 0.7 cm round, hyperechoic structure is seen within the renal cortex, also in the interpolar area, suspicious for a small angiomyolipoma. This may correspond to the 0.4 cm hypoattenuating lesion noted on the 2007 CT which appears to be of fat attenuation. The left kidney is normal in position and size, measuring 9.8 cm in length. The parenchyma echogenicity is mildly increased, suggesting underlying medical renal disease. No mass, calculus or hydronephrosis is noted. The urinary bladder is nearly empty, limiting assessment. The ureteral jets are not seen. IMPRESSION: Impression: 1. No hydronephrosis. 2. Mildly increased renal parenchymal echogenicity suggesting underlying medical renal disease. 3. 2.5 cm right pau l parapelvic cyst, requiring no specific follow-up. 4. 0.7 cm hyperechoi c lesion within the renal cortex at the interpolar area, possibly a [place]omy[place] ([id number]) -------- FINAL REPOR T -------- Dictated By: Vicenta Echeverria i Dictated Date: 12/08/2024 13:59 ET Assigned Physician: Vicenta North Reviewed and Electronically Signed By: Vicenta North Signed Date: 025 14:04 ET Workstation ID: [id number] Transcribed By: Self Edit Transcribed Date: 12/08/2024 13:59 ET URINALYSIS WITH REFLEX MICRO SCOPIC Reviewed date:11/26/2024 04:24:32 PM Interpretation: Performing Lab: Notes/Report: Specific [place] Urine 1.022 1.003-1.030 pH, Urine 5.5 5.0-8.0 pH Leukocytes, Urine Trace Negative Nitrite, Urine Negative Negative Protein, Urine Negative <=Trace mg/dL Glucose, Urine Negative Negative mg/dL Ketones, Urine Trace Negative mg/dL Urobilinogen, Urine 0.2 0.2-1.0 mg/dL Bilirubin, Urine Negative Negative Blood, Urine Negative Negative RBC, Urine 5.0 0-4 /HPF WBC, Urine 2.8 0-4 /HPF Squamous Epithelial, Urine 94 0-60 /LPF Bacteria, Urine Negative Negative /HPF Hyaline Casts, Urine 1.6 0-3 /LPF HEMOGLOBIN A1C Reviewed date:11/26/2024 04:24:32 PM Interpretation: Performing Lab: Notes/Report: Hemoglobin A1C 6.0 <6.5 % Mean Bld Glu Estim. 126 COMPREHENSIVE METABOLIC PANE L Reviewed date:11/26/2024 04:24:32 PM Interpretation: Performing Lab: Notes/Report: Sodium 137 133-145 mmol/L Potassium 4.3 3.5-5.5 mmol/L Chloride 103 96-110 mmol/L CO2 27 21-32 mmol/L Anion Gap 7 3-11 Glucose 76 70-100 mg/dL BUN 23 5-25 mg/dL Creatinine 1.21 0.50-1.10 mg/dL eGFR 46 >=60 mL/min/1.73m2 Calculation based on the Chronic Kidney Disease Epidemiology Collaboration (CKD-EPI) equation refit without adjustment for race. BUN/Creatinine Ratio 19.0 Calcium 9.5 8.5-10.5 mg/dL AST (SGOT) 34 10-42 unit/L ALT (SGPT) 27 10-60 unit/L Alkaline Phosphatase 75 42-121 unit/L Total Protein 7.4 6.0-8.0 g/dL Albumin 4.5 3.2-5.0 g/dL Total Bilirubin 0.7 0.0-1.4 mg/dL THYROID STIMULATING HORMONE Reviewed date:11/26/2024 04:47:54 PM Interpretation: Performing Lab: Notes/Report: TSH 2.66 0.40-4.00 mcIU/mL VITAMIN D 25 HYDROXY Reviewed date:11/26/2024 04:47:54 PM Interpretation: Performing Lab: Notes/Report: Vit D, 25-Hydroxy 57.5 30.0-80.0 ng/mL LIPID PANEL WITH REFLEX TO D IRECT LDL Reviewed date:11/26/2024 04:24:32 PM Interpretation: Performing Lab: Notes/Report: Cholesterol 162 0-200 mg/dL Triglycerides 111 0-150 mg/dL HDL 70 >=40 mg/dL LDL Calculated 70 0-100 mg/dL Estimated LDL Calculated using equation: Total cholesterol - HDL cholesterol - (Triglycerides/5) VLDL Cholesterol Obi 22.2 Non HDL Chol. (LDL+VLDL) 92 <145 mg/dL Chol/HDL Ratio 2.3 0.0-4.4 CBC WITH AUTO DIFFERENTIAL Reviewed date:11/26/2024 04:24:32 PM Interpretation: Performing Lab: Notes/Report: WBC 6.4 4.8-10.8 K/mcL RBC 4.20 3.80-4.80 M/mcL Hemoglobin 13.1 11.5-16.0 g/dL Hematocrit 40.8 35.0-47.0 % MCV 98.1 79.0-98.0 FL MCH 31.5 27.0-32.0 pcg MCHC 32.1 32.0-37.0 g/dL RDW 13.1 11.0-15.0 % Platelets 213 130-400 K/mcL MPV 11.0 7.0-11.0 FL NRBC 0.0 <1.0 % NRBC Absolute 0.00 <0.10 K/mcL Neutrophils Relative 45.6 Lymphocytes Relative 42.8 Monocytes Relative 9.9 Eosinophils Relative 0.9 Basophils Relative 0.8 Immature Granulocytes Relative 0.0 Neutrophils Absolute 2.89 1.50-7.00 K/mcL Lymphocytes Absolute 2.72 1.00-5.00 K/mcL Monocytes Absolute 0.63 0.20-1.00 K/mcL Eosinophils Absolute 0.06 0.00-0.50 K/mcL Basophils Absolute 0.05 0.00-0.20 K/mcL Immature Granulocytes Absolute 0.00 0.00-0.03 K/mcL Reason For Referral No Information Medications Medication SIG (Take, Route, Frequency, Duration) Notes Start Date End Date Status LORazepam 0.5 MG Oral; Duration: 15 Days Active Esomeprazole Magnesium 40 MG TAKE 1 CAPSULE ONCE DAILY Oral; Duration: 90 Days Active Eliquis 5 MG Oral; Duration: 90 Days Active Methenamine Hippurate 1 GM Oral; Duration: 90 Days Active Fosfomycin Tromethamine 3 GM PLEASE SEE ATTACHED FOR DETAILED DIRECTIONS Oral; Duration: 3 Days Active Metoprolol Succinate ER 25 MG Oral; Duration: 90 Days Acti ve Cefpodoxime Proxetil 200 MG 1 tablet wit h food Orally every 12 hrs; Duration: 5 day(s) 11/29/2024 Active Fluconazole 150 MG TAKE 1 TABLET (ORAL) DAILY FOR 1 DAYS REPEAT ON DAY 4 IF SYMPTOMS STILL PRESENT Oral; Duration: 2 Days Active Atorvastatin Calcium 40 MG TAKE 1 TABLET BY MOUTH EVERY DAY Oral; Duration: 90 Days Active Problems Problem Type SNOMED Code ICD Code Onset Dates Problem Status W/U Status Risk Notes Problem Use of anticoagulation (697726746) Chronic anticoagulation (Z79.01) Active confirmed Problem Dyslipidemia (774556181) Dyslipidemia (E78.5) Active confirmed Problem Atrial fibrillation (84755291) PAF (paroxysmal atrial fibrillation) (I48.0) Active confirmed Problem Avitaminosis D (13465961) Avitaminosis D (E55.9) Active confirmed Vital Signs Heart Rate 69 /min 11/26/2024 Blood pressure diastolic 70 mm Hg 11/26/2024 Oximetry 99 % 11/26/2024 Height 64 in 11/26/2024 Blood pressure systolic 130 mm Hg 11/26/2024 Weight 130 lbs 11/26/2024 BMI 22.31 kg/m2 11/26/2024 Encounters Encounter Location Date Provider Diagnosis [facility] [address] [place] [address] [place] [phone] 11/26/2024 YUKI COOK PAF (paroxysmal atri al fibrillation) I48.0 ; Chronic anticoagulation Z79.01 ; Dyslipidemia E78.5 ; Right flank pain R10.9 and Encounter for examination of blood pressure without abnormal findings Z01.30 [facility] [address] [place] [address] [place] [phone] 11/26/2024 YUKI TYRELT [facility] [address] [place] [address] 11/29/2024 YUKI TYRELT [facility] [address] [address] 12/08/2024 YUKI COOK [facility] [address] [facility] [address] [address] 12/14/2024 YUKI JOYCE [facility] [address] [facility] [address] [address] 12/24/2024 YUKI COOK Assessments Encounter Date Diagnosis (ICD Code) Assessment Notes Treatment Notes Treatment Clinical Notes Section Notes 11/26/2024 Chronic anticoagulation (ICD-10 - Z79.01) Will try and track down records from [facility] which likely will be difficult Will send her for some comprehensive labs including a urinalysis Renal ultrasound to rule out right flank pain hematuria and kidney stones Chronic anticoagulation with Eliquis and rate controlled with beta-jaime for her PAF Under the care of cardiology Of note, some information is being carried forward from prior records for informational purposes only and is being cited so that efficiency, safety and quality of the patient's care is not compromised This note was prepared using voice recognition software and direct typing Please excuse inadvertent car dealer or typing errors, or uncorrected word substitutions Although every attempt has been made by the provider to proofread this document, occasional misspellings and typographical errors may still be present Due to the previous pandemic, and the use of personal protective equipment (PPE) This may decrease voice recognition accuracy Inadvertent car dealer errors may occur 11/26/2024 PAF (paroxysmal atrial fibrillation) (ICD-10 - I48.0) Will try and track down records from [facility] which likely will be difficult Will send her for some comprehensive labs including a urinalysis Renal ultrasound to rule out right flank pain hematuria and kidney stones Chronic anticoagulation with Eliquis and rate controlled with beta-jaime for her PAF Under the care of cardiology Of note, some information is being carried forward from prior records for informational purposes only and is being cited so that efficiency, safety and quality of the patient's care is not compromised This note was prepared using voice recognition software and direct typing Please excuse inadvertent car dealer or typing errors, or uncorrected word substitutions Although every attempt has been made by the provider to proofread this document, occasional misspellings and typographical errors may still be present Due to the previous pandemic, and the use of personal protective equipment (PPE) This may decrease voice recognition accuracy Inadvertent car dealer errors may occur 11/26/2024 Dyslipidemia (ICD-10 - E78.5) Will try and track down records from [facility] which likely will be difficult Will send her for some comprehensive labs including a urinalysis Renal ultrasound to rule out right flank pain hematuria and kidney stones Chronic anticoagulation with Eliquis and rate controlled with beta-jaime for her PAF Under the care of cardiology Of note, some information is being carried forward from prior records for informational purposes only and is being cited so that efficiency, safety and quality of the patient's care is not compromised This note was prepared using voice recognition software and direct typing Please excuse inadvertent car dealer or typing errors, or uncorrected word substitutions Although every attempt has been made by the provider to proofread this document, occasional misspellings and typographical errors may still be present Due to the previous pandemic, and the use of personal protective equipment (PPE) This may decrease voice recognition accuracy Inadvertent car dealer errors may occur 11/26/2024 Right flank pain (ICD-10 - R10.9) Will try and track down records from [facility] which likely will be difficult Will send her for some comprehensive labs including a urinalysis Renal ultrasound to rule out right flank pain hematuria and kidney stones Chronic anticoagulation with Eliquis and rate controlled with beta-jaime for her PAF Under the care of cardiology Of note, some information is being carried forward from prior records for informational purposes only and is being cited so that efficiency, safety and quality of the patient's care is not compromised This note was prepared using voice recognition software and direct typing Please excuse inadvertent car dealer or typing errors, or uncorrected word substitutions Although every attempt has been made by the provider to proofread this document, occasional misspellings and typographical errors may still be present Due to the previous pandemic, and the use of personal protective equipment (PPE) This may decrease voice recognition accuracy Inadvertent car dealer errors may occur 11/26/2024 Encounter for examination of blood pressure without abnormal findings (ICD-10 - Z01.30) Will try and track down records from [facility] which likely will be difficult Will send her for some comprehensive labs including a urinalysis Renal ultrasound to rule out right flank pain hematuria and kidney stones Chronic anticoagulation with Eliquis and rate controlled with beta-jaime for her PAF Under the care of cardiology Of note, some information is being carried forward from prior records for informational purposes only and is being cited so that efficiency, safety and quality of the patient's care is not compromised This note was prepared using voice recognition software and direct typing Please excuse inadvertent car dealer or typing errors, or uncorrected word substitutions Although every attempt has been made by the provider to proofread this document, occasional misspellings and typographical errors may still be present Due to the previous pandemic, and the use of personal protective equipment (PPE) This may decrease voice recognition accuracy Inadvertent car dealer errors may occur Plan Of Treatment Pending Test Test Name Order Date LIPID PANEL, STANDARD 11/26/2024 COMPREHENSIVE METABOLIC PANEL 11/26/2024 CBC (INCLUDES DIFF/PLT) 11/26/2024 URINALYSIS, COMPLETE 11/26/2024 HEMOGLOBIN A1c 11/26/2024 TSH 11/26/2024 VITAMIN D,25-OH,TOTAL,IA 11/26/2024 US Renal 11/26/2024 Insurance Providers Payer Name Payer Address Payer Phone Subscriber Number Group Number Insured Name Patient Relationship to Insured Coverage Start Date Coverage End Date Medicare Part B J14 [address] [place] [id number] Terry Yadav Self - patient is the insured [facility] [address] [place] [address] [id number] Terry Yadav Self - patient is the insured
== END 2025-01-11 13:42 | disposition home or self-care (01) ==
LOC: HO.HKA 14:49
PROVIDERS: PCP Physician Assistant Medical; Referring Provider Physician Assistant Medical; Visit Provider Internal Medicine Hypertension Specialist
DX: N18.30 Chronic kidney disease, stage 3 unspecified (principal)
CPT/HCPCS: 99204

== ENCOUNTER 2025-02-03 11:39 | Outpatient (AMB) | payer MEDICARE, BC, SELFPAY ==
--- NOTE | 2025-02-03 11:43 | HO.NEPHOV ---
Vital Signs 02/03/25 11:44 Height 5 ft 6 in Weight 127 lb BMI 20.5 BP 104/60 Blood Pressure Location Rt brachial Position Sitting Pulse 82 Pulse Source Pulse Oximeter Pulse Oximetry (%) 95 Oxygen Delivery Method Room Air Intake Visit Reasons: 3 wk fu w/ labs Audio Video Technician Required: No Accompanied by: Self / Same As Patient Allergies nitrofurantoin (From MACROBID) Allergy (Intermediate, Verified 02/03/25 11:46) SWELLING Sulfa (Sulfonamide Antibiotics) (SULFA (SULFONAMIDE ANTIBIOTICS)) Allergy (Intermediate, Verified 02/03/25 11:46) SWELLIING scallops (SCALLOPS) Adverse Reaction (Intermediate, Verified 02/03/25 11:46) VOMITING Medication List - Last Reconciled 02/03/25 by Cali Damon MD apixaban (Eliquis) 5 mg PO BID ascorbate calcium (vitamin C) 500 mg PO DAILY atorvastatin 40 mg PO DAILY coenzyme Q10 100 mg PO DAILY esomeprazole magnesium 40 mg PO DAILY lactobacillus combination no.9 (Adult 50 Plus Probiotic) 4,000 mmu cells PO DAILY lorazepam 0.25 mg (1/2 x 0.5 mg) PO Q12H PRN methenamine hippurate 1 g PO BID metoprolol succinate ER 25 mg PO BEDTIME HPI Comments Details: - The patient is a 79-year-old female presenting with evaluation of kidney function and management of chronic conditions. - Chronic Kidney Disease: Stable kidney function with recent creatinine increase to 1.2 mg/dL. - Atrial Fibrillation: Managed with metoprolol and anticoagulation, annual follow-ups. - GERD: Managed with omeprazole, dosage reduction planned. - Constipation: Managed with stool softeners and [place], dietary adjustments advised. - History of Oophorectomy: Bilateral oophorectomy for ovarian cysts. - History of Rib Fracture: Occurred two years ago, required surgery. - History of Wrist, Arm, Elbow, and Shoulder Fractures: Resulted from a fall, surgical repair done. - Urinary Tract Infections: Recurrent, recent infection treated, avoiding Bactrim. 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 02/03/25 The patient is a 79-year-old female follow up regarding mild elevation in serum creatinine. Now has mild hypotension and microscopic hematuria. The hypotension was noted with a blood pressure reading of 104/60 mmHg, which is lower than usual for the patient. The patient denies any symptoms of dizziness or lightheadedness associated with the low blood pressure. The patient reports constipation, which is not a daily occurrence, and attributes occasional l bleeding to hemorrhoids. The hemorrhoids have been present for a while, and the patient uses a perforation H pad to manage bleeding. Microscopic hematuria was detected in the urine, which may be due to contamination from hemorrhoids. The patient has no history of visible blood in the urine and reports clear urine with occasional bubbles. PENDING SALE TO [facility] Medical History (Updated 12/23/24 @ 13:27 by COLBY Jones) Constipation History of frequent urinary tract infections Pre-diabetes CKD (chronic kidney disease) Paroxysmal atrial fibrillation Hyperlipidemia Surgical History History of colonoscopy (~08/03/12) Hx of hammer toe correction Family History Father AAA (abdominal aortic aneurysm) CVD (cardiovascular disease) Mother No problems noted. Social History [facility] Patient Tobacco Use Status: Former Tobacco user e-Cigarette/Vaping Use: Former Use service: No Current occupational status: retired Cognitive needs: No Hearing needs: No Vision needs: Yes (rx glasses) Physical Exam Vital Signs: Last Vital Signs Pulse 82 02/03/25 11:44 BP 104/60 02/03/25 11:44 Pulse Ox 95 02/03/25 11:44 Oxygen Delivery Method Room Air 02/03/25 11:44 BMI result Body Mass Index 20.5 Comfortable Neck supple no JVD. Lungs entry equal no rales. Heart S1-S2 heard no gallop or rub. Abdomen soft nontender. Neuro alert awake oriented. No asterixis. Extremities no edema. Results Reviewed Nephrology Results: Hgb, (12.0-16.0) 13.5 g/dl 01/10/25 WBC, (4.8-10.8) 6.5 X10*3/uL 01/10/25 Plt Count, (160-400) 236 X10*3/uL 01/10/25 Sodium, (135-145) 140 mmol/L Today Potassium, (3.3-5.1) 4.1 mmol/L Today Chloride, (96-108) 106 mmol/L Today Carbon Dioxide, (22-29) 27 mmol/L Today BUN, (9-16) 28 mg/dL H Today Creatinine, (0.5-1.4) 1.09 mg/dL Today Calcium, (8.4-10.2) 9.6 mg/dL Today Urine Protein, (Neg-Trace) Trace mg/dL 01/10/25 Urine Creatinine 110.76 mg/dL 01/10/25 Assessment & Plan Assessment & Plan (1) CKD (chronic kidney disease): Code(s): N18.9 - Chronic kidney disease, unspecified Category: Medical Qualifiers: Chronic kidney disease stage: stage 3 (moderate) Chronic kidney disease stage 3 subtype: unspecified whether 3a or 3b Qualified Code(s): N18.30 - Chronic kidney disease, stage 3 unspecified Plan 1. Chronic Kidney Disease She probably has age-related nephron loss. There could be a component of hypoperfusion Creatitine was 1.19 and has decreased to 1.09 In view of microhematuria, will obtain serologies -DC omeprazole dosage. - Increase fluid intake. 2. Atrial Fibrillation - Continue metoprolol and anticoagulation. - Annual cardiology follow-up. 3. Gastroesophageal Reflux Disease (Gerd) - DC omeprazole . 4. Constipation - Use stool softeners and [place]. - Increase fiber intake. 5. Urinary Tract Infections - Avoid Bactrim. - Monitor for recurrence. 6. Angiomyolipoma - No intervention needed. Answered all her questions. Reassured her. Orders: Orders UA and rflx microscopic Today N18.30 - Chronic kidney disease, stage 3 unspecified US renal BI Today N18.30 - Chronic kidney disease, stage 3 unspecified LUCY Reflex Titer and Pattern Today N18.30 - Chronic kidney disease, stage 3 unspecified Neutrophil Cytoplasma Ab Today N18.30 - Chronic kidney disease, stage 3 unspecified Complement C3 Today N18.30 - Chronic kidney disease, stage 3 unspecified Complement C4 Today N18.30 - Chronic kidney disease, stage 3 unspecified Protein Electrophoresis, Serum Today N18.30 - Chronic kidney disease, stage 3 unspecified Proteinase 3 PR3 Antibodies Today N18. - Chronic kidney disease, stage 3 unspecified Basic Metabolic Panel Today N18.30 - Chronic kidney disease, stage 3 unspecified Anti DNA DS Antibody Today N18.30 - Chronic kidney disease, stage 3 unspecified Anti Glomerular Basement Memb Today N18.30 - Chronic kidney disease, stage 3 unspecified Myeloperoxidase Antibody Today N18.30 - Chronic kidney disease, stage 3 unspecified Coding Level of Care Code Est Pt Level 4 (82955) Diagnoses Stage 3 chronic kidney disease, unspecified whether stage 3a or 3b CKD N18.30 Chronic kidney disease stage: stage 3 (moderate) Chronic kidney disease stage 3 subtype: unspecified whether 3a or 3b
[2025-02-03 11:44] VITALS: BP 104/60; PULSE 82; O2SAT 95; BMI 20.5
--- OUTSIDE RECORDS SUMMARY | 2025-02-03 14:49 | XMS_ITS | Encounter Summary ---
Author Organization [facility] Address [address] [place] [address] Care Team Providers Care Marine Geologist Name Role Phone Sánchez Gracia MD Primary Care Provider [phone] Encounter Details Date Type Department Care Team ([facility] st Contact Info) Description 10/15/2024 Lab Requisition [facility] - Main Lab [address] [facility] [place] [id number] Erika Chávez, COLBY [address] [facility] [address] [place] [address] Urinary tract infection, site not specified Social History Tobacco Use Types Packs/Day Years Used Date Smoking Tobacco: Never Assessed Comments Unknown Sex and Gender Information Value Date Recorded Sex Assigned at Not on file Legal Sex Female 7:31 AM EST Gender Identity Not on file Sexual Orientation Not on file documented as of this encounter Plan of Treatment Not on file documented as of this encounter Procedures Procedure Name Priority Date/Time Associated Diagnosis Comments BACTERIAL IDENTIFICATION AND SUSCEPTIBILITY, AEROBIC Routine 10/14/2024 12:00 AM EDT Urinary tract infection, site not specified documented in this encounter Results * (ABNORMAL) Bacterial identification and susceptibility, aerobic (10/14/2024 12:00 AM EDT) Culture, Bacterial ID and Sensitivity Escherichia coli(A) JASON 10/16/2024 7:48 AM EDT [facility] Other Urine specimen from urethra / Unknown 10/14/2024 10/15/2024 10:00 AM EDT Narrative Organism Antibiotic Method Susceptibility Escherichia coli Amoxicillin/Clavulanate JASON <=2 ug/ml: Susceptible Escherichia coli Ampicillin/Sulbactam JASON <=2 ug/ml: Susceptible Escherichia coli Piperacillin/Tazobactam JASON <=4 ug/ml: Susceptible Escherichia coli Cefazolin (Urine) JASON 2 ug/ml: Susceptible Escherichia coli Cefoxitin JASON <=4 ug/ml: Susceptible Escherichia coli Ceftazidime JASON <=0.5 ug/ml: Susceptible Escherichia coli Ceftriaxone JASON <=0.25 ug/ml: Susceptible Escherichia coli Cefepime JASON <=0.12 ug/ml: Susceptible Escherichia coli Meropenem JASON <=0.25 ug/ml: Susceptible Escherichia coli Amikacin JASON 2 ug/ml: Susceptible Escherichia coli Gentamicin JASON <=1 ug/ml: Susceptible Escherichia coli Ciprofloxacin JASON <=0.06 ug/ml: Susceptible Escherichia coli Levofloxacin JASON <=0.12 ug/ml: Susceptible Escherichia coli Nitrofurantoin JASON <=16 ug/ml: Susceptible Escherichia coli Trimethoprim/Sulfamethoxazole JASON <=20 ug/ml: Susceptible us Erika [facility] MICROBIOLOGY - GENERAL ORDER RIGO Final Result [facility] [address] [place] [address], documented in this encounter Visit Diagnoses Diagnosis Urinary tract infection, site not specified documented in this encounter Care Teams Marine Geologist Relationship Specialty Start Date End Date Sánchez Gracia MD [address] [place] [address] [place] [address] PCP - General 05/03/03 documented as of this encounter
--- OUTSIDE RECORDS SUMMARY | 2025-02-03 14:49 | XMS_ITS | Clinical Summary ---
Author Organization [address] Address [address] [place] [address] Phone Care Team Providers Care Urban Redevelopment Specialist Name Role Phone Sánchez Gracia MD Primary Care Provider [phone] Encounters Date Type Department Care Team Description 11/30/2024 12:22 PM EDT - 11/30/2024 11:59 PM EDT Hospital Encounter [facility] Ultrasound [address] [place] [address] Unspecified abdominal pain Discharge Disposition: Home or Self Care from Last 3 Months Social History Tobacco Use Types Packs/Day Years Used Date Smoking Tobacco: Never Assessed Comments Unknown Sex and Gender Information Value Date Recorded Sex Assigned at Not on file Legal Sex Female 7:31 AM EST Gender Identity Not on file Sexual Orientation Not on file Plan of Treatment Health Maintenance Due Date Last Done Comments DTaP,Tdap,and Td Vaccines (1 - Tdap) 1964 Pneumococcal Vaccine: 50+ Years (1 of 1 - PCV) 09/19/1995 Zoster Vaccines (1 of 2) 09/19/1995 RSV Immunization Adult Patients (1 - 1-dose 75+ series) 2020 Depression Screening 03/24/2024 Falls Risk Assessment 09/24/2024 Hepatitis C Screening 09/24/2024 Medicare Annual Wellness Visit 09/24/2024 Osteoporosis Screening (Bone Density Screening) 09/24/2024 Social Influencers of Health Screening 09/24/2024 COVID-19 Vaccine ( season) 2024 02/25/2022, 07/23/2021, 01/23/2021, Additional history exists Influenza Vaccine (#1) 2024 , 12/31/2022, 01/02/2022, Additional history exists Hypertension/CHF/CAD Annual BMP Blood Test 11/26/2025 11/26/2024 Cholesterol Screening (Lipid Panel) 11/26/2029 11/26/2024 HIB Vaccines Aged Out No longer eligi ble based on patient's age to complete this topic HPV Vaccines Aged Out No longer eligi ble based on patient's age to complete this topic Hepatitis A Vaccines Aged Out No long er eligible based on patient's age to complete this topic Hepatitis B Vaccines Aged Out No long er eligible based on patient's age to complete this topic IPV Vaccines Aged Out No longer eligi ble based on patient's age to complete this topic MMR Vaccines Aged Out No longer eligi ble based on patient's age to complete this topic Meningococcal ACWY Vaccine Aged Out N o longer eligible based on patient's age to complete this topic Meningococcal B Vaccine Aged Out No l onger eligible based on patient's age to complete this topic RSV Immunization Patients Under 20 months Aged Out No longer eligible based on patient's age to complete this topic Varicella Vaccines Aged Out No longer eligible based on patient's age to complete this topic Procedures Procedure Name Priority Date/Time Associated Diagnosis Comments US RETROPERITONEAL COMPLETE Routine 11/30/2024 1:27 PM EDT Unspecified abdominal pain URINALYSIS WITH REFLEX MICROSCOPIC Routine 11/26/2024 10:46 AM EDT Routine general medical examination at a health care facility Screening for lipoid disorders Screening for diabetes mellitus Avitaminosis D Screening for thyroid disorder Abnormal finding of blood chemistry, unspecified Other specified anemias CBC WITH AUTO DIFFERENTIAL Routine 11/26/2024 10:46 AM EDT Routine general medical examination at a health care facility Screening for lipoid disorders Screening for diabetes mellitus Avitaminosis D Screening for thyroid disorder Abnormal finding of blood chemistry, unspecified Other specified anemias THYROID STIMULATING HORMONE Routine 11/26/2024 10:46 AM EDT Routine general medical examination at a health care facility Screening for lipoid disorders Screening for diabetes mellitus Avitaminosis D Screening for thyroid disorder Abnormal finding of blood chemistry, unspecified Other specified anemias VITAMIN D 25 HYDROXY Routine 11/26/2024 10:46 AM EDT Routine general medical examination at a health care facility Screening for lipoid disorders Screening for diabetes mellitus Avitaminosis D Screening for thyroid disorder Abnormal finding of blood chemistry, unspecified Other specified anemias HEMOGLOBIN A1C Routine 11/26/2024 10:46 AM EDT Routine general medical examination at a health care facility Screening for lipoid disorders Screening for diabetes mellitus Avitaminosis D Screening for thyroid disorder Abnormal finding of blood chemistry, unspecified Other specified anemias LIPID PANEL WITH REFLEX TO DIRECT LDL Routine 11/26/2024 10:46 AM EDT Routine general medical examination at a health care facility Screening for lipoid disorders Screening for diabetes mellitus Avitaminosis D Screening for thyroid disorder Abnormal finding of blood chemistry, unspecified Other specified anemias URINALYSIS WITH REFLEX MICROSCOPIC Routine 11/26/2024 10:46 AM EDT Routine general medical examination at a health care facility Screening for lipoid disorders Screening for diabetes mellitus Avitaminosis D Screening for thyroid disorder Abnormal finding of blood chemistry, unspecified Other specified anemias COMPREHENSIVE METABOLIC PANEL Routine 11/26/2024 10:46 AM EDT Routine general medical examination at a health care facility Screening for lipoid disorders Screening for diabetes mellitus Avitaminosis D Screening for thyroid disorder Abnormal finding of blood chemistry, unspecified Other specified anemias CBC AND DIFFERENTIAL Routine 11/26/2024 10:46 AM EDT Routine general medical examination at a health care facility Screening for lipoid disorders Screening for diabetes mellitus Avitaminosis D Screening for thyroid disorder Abnormal finding of blood chemistry, unspecified Other specified anemias from Last 3 Months Results * US Retroperitoneal Complete (11/30/2024 1:27 PM EDT) Anatomical Region Laterality Modality Body Ultrasound 12/08/2024 1:59 PM EDT Impressions 12/08/2024 2:04 PM EDT Impression: 1. No hydronephrosis. 2. Mildly increased renal parenchymal echogenicity suggesting underlying medical renal disease. 3. 2.5 cm right renal parapelvic cyst, requiring no specific follow-up. 4. 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 Telerad PA ([id number]) -------- FINAL REPORT -------- Dictated By: Vicenta North Dictated Date: 12/08/2024 13:59 ET Assigned Physician: Vicenta North Reviewed and Electronically Signed By: Vicenta North Signed Date: 12/08/2024 14:04 ET Workstation ID: [id number] Transcribed By: Self Edit Transcribed Date: 12/08/2024 13:59 ET Narrative 12/08/2024 2:04 PM EDT History: Flank pain. Comparison: CT abdomen/pelvis 10/09/06 [...] assessment. The ureteral jets are not seen. Procedure Note Vicenta North MD - 12/08/2024 History: Flank pain. Comparison: CT abdomen/pelvis 10/09/06 Findings: Real-time imaging of the kidneys was performed. The right kidney is normal in position and size, measuring 9.3 cm inlength. The renal parenchymal echogenicity is mildly increased, suggestingunderlying medical renal disease. There is no hydronephrosis. A 1.4 x 2.5cm parapelvic cyst is seen in the interpolar area, unchanged from theprevious study. A 0.7 cm round, hyperechoic structure is seen within therenal cortex, also in the interpolar area, suspicious for a smallangiomyolipoma. This may correspond to the 0.4 cm hypoattenuating lesionnoted on the 2006 CT which appears to be of fat attenuation. The left kidney is normal in position and size, measuring 9.8 cm inlength. The parenchyma echogenicity is mildly increased, suggestingunderlying medical renal disease. No mass, calculus or hydronephrosis isnoted. The urinary bladder is nearly empty, limiting assessment. The ureteraljets are not seen. IMPRESSION: Impression: 1. No hydronephrosis. 2. Mildly increased renal parenchymal echogenicity suggesting underlyingmedical renal disease. 3. 2.5 cm right renal parapelvic cyst, requiring no specific follow-up. 4. 0.7 cm hyperechoic lesion within the renal cortex at the interpolararea, possibly a small angiomyolipoma. Teleyanet BOWMAN ([id number]) -------- FINAL REPORT -------- Dictated By: Vicenta North Dictated Date: 12/08/2024 13:59 ET Assigned Physician: Vicenta North Reviewed and Electronically Signed By: Vicenta North Signed Date: 12/08/2024 14:04 ET Workstation ID: [id number] Transcribed By: Self Edit Transcribed Date: 12/08/2024 13:59 ET us Sania Marinelli NP IMG US PROCEDURES Final Resul t * (ABNORMAL) Urinalysis with reflex microscopic (11/26/2024 10:46 AM EDT) Specific [place] Urine 1.022 1.003 - 1.030 LAB URINALYSIS - AUTOMATED METHOD 11/26/2024 12:29 PM [facility] pH, Urine 5.5 5.0 - 8.0 pH LAB URINALYSIS - AUTOMATED METHOD 11/26/2024 12:29 PM [facility] Leukocytes, Urine Trace(A) Negative LAB URINALYSIS - AUTOMATED METHOD 11/26/2024 12:29 PM [facility] Nitrite, Urine Negative Negative LAB URINALYSIS - AUTOMATED METHOD 11/26/2024 12:29 PM [facility] Protein, Urine Negative <=Trace mg/dL LAB URINALYSIS - AUTOMATED METHOD 11/26/2024 12:29 PM [facility] Glucose, Urine Negative Negative mg/dL LAB URINALYSIS - AUTOMATED METHOD 11/26/2024 12:29 PM [facility] Ketones, Urine Trace(A) Negative mg/dL LAB URINALYSIS - AUTOMATED METHOD 11/26/2024 12:29 PM [facility] Urobilinogen, Urine 0.2 0.2 - 1.0 mg/dL LAB URINALYSIS - AUTOMATED METHOD 11/26/2024 12:29 PM [facility] Bilirubin, Urine Negative Negative LAB URINALYSIS - AUTOMATED METHOD 11/26/2024 12:29 PM [facility] Blood, Urine Negative Negative LAB URINALYSIS - AUTOMATED METHOD 11/26/2024 12:29 PM [facility] RBC, Urine 5.0(H) 0 - 4 /HPF LAB URINALYSIS - AUTOMATED METHOD 11/26/2024 12:29 PM [facility] WBC, Urine 2.8 0 - 4 /HPF LAB URINALYSIS - AUTOMATED METHOD 11/26/2024 12:29 PM [facility] Squamous Epithelial, Urine 94(H) 0 - 60 /LPF LAB URINALYSIS - AUTOMATED METHOD 11/26/2024 12:29 PM [facility] Bacteria, Urine Negative Negative /HPF LAB URINALYSIS - AUTOMATED METHOD 11/26/2024 12:29 PM EDT [facility] Hyaline Casts, Urine 1.6 0 - 3 /LPF LAB URINALYSIS - AUTOMATED METHOD 11/26/2024 12:29 PM [facility] Urine Urine specimen obtained by clean catch procedure / Unknown Non-blood Collection / Unknown 11/26/2024 10:46 AM EDT 11/26/2024 11:58 AM EDT us Sania Marinelli AIRVEYOR OPERATOR LAB URINE ORDERABLES Final Re sult [facility] [address] [place] [address], [place] [phone] * Lipid panel with reflex to direct LDL (11/26/2024 10:46 AM EDT) Cholesterol 162 0 - 200 mg/dL LAB CHEMISTRY METHOD 11/26/2024 4:10 PM [facility] Triglycerides 111 0 - 150 mg/dL LAB CHEMISTRY METHOD 11/26/2024 4:10 PM [facility] HDL 70 >=40 mg/dL LAB CHEMISTRY METHOD 11/26/2024 4:10 PM [facility] LDL Calculated 70 0 - 100 mg/dL LAB CHEMISTRY METHOD 11/26/2024 4:10 PM [facility] Comment:Estimated LDL Calcul ated using equation: Total cholesterol - HDL cholesterol - (Triglycerides/5) VLDL Cholesterol Obi 22.2 mg/dL LAB CHEMISTRY METHOD 11/26/2024 4:10 PM [facility] Non HDL Chol. (LDL+VLDL) 92 <145 mg/dL LAB CHEMISTRY METHOD 11/26/2024 4:10 PM [facility] Chol/HDL Ratio 2.3 0.0 - 4.4 LAB CHEMISTRY METHOD 11/26/2024 4:10 PM [facility] Blood Venous blood specimen / Unknown Venipuncture / Unknown 11/26/2024 10:46 AM EDT 11/26/2024 11:56 AM EDT us Sania Marinelli AIRVEYOR OPERATOR LAB BLOOD ORDERABLES Final Re sult [facility] [address] [place] [address], * (ABNORMAL) CBC auto differential (11/26/2024 10:46 AM EDT) WBC 6.4 4.8 - 10.8 K/mcL LAB HEMETOLOGY METHOD 11/26/2024 12:14 PM EDT [facility] RBC 4.20 3.80 - 4.80 M/mcL LAB HEMETOLOGY METHOD 11/26/2024 12:14 PM EDT [facility] Hemoglobin 13.1 11.5 - 16.0 g/dL LAB HEMETOLOGY METHOD 11/26/2024 12:14 PM EDT [facility] Hematocrit 40.8 35.0 - 47.0 % LAB HEMETOLOGY METHOD 11/26/2024 12:14 PM EDT [facility] MCV 98.1(H) 79.0 - 98.0 FL LAB HEMETOLOGY METHOD 11/26/2024 12:14 PM EDT [facility] MCH 31.5 27.0 - 32.0 pcg LAB HEMETOLOGY METHOD 11/26/2024 12:14 PM EDT [facility] MCHC 32.1 32.0 - 37.0 g/dL LAB HEMETOLOGY METHOD 11/26/2024 12:14 PM EDT [facility] RDW 13.1 11.0 - 15.0 % LAB HEMETOLOGY METHOD 11/26/2024 12:14 PM EDT [facility] Platelets 213 130 - 400 K/mcL LAB HEMETOLOGY METHOD 11/26/2024 12:14 PM [facility] MPV 11.0 7.0 - 11.0 FL LAB HEMETOLOGY METHOD 11/26/2024 12:14 PM [facility] NRBC 0.0 <1.0 % LAB HEMETOLOGY METHOD 11/26/2024 12:14 PM [facility] NRBC Absolute 0.00 <0.10 K/mcL LAB HEMETOLOGY METHOD 11/26/2024 12:14 PM [facility] Neutrophils Relative 45.6 % LAB HEMETOLOGY METHOD 11/26/2024 12:14 PM [facility] Lymphocytes Relative 42.8 % LAB HEMETOLOGY METHOD 11/26/2024 12:14 PM [facility] Monocytes Relative 9.9 % LAB HEMETOLOGY METHOD 11/26/2024 12:14 PM [facility] Eosinophils Relative 0.9 % LAB HEMETOLOGY METHOD 11/26/2024 12:14 PM [facility] Basophils Relative 0.8 % LAB HEMETOLOGY METHOD 11/26/2024 12:14 PM [facility] Immature Granulocytes Relative 0.0 % LAB HEMETOLOGY METHOD 11/26/2024 12:14 PM [facility] Neutrophils Absolute 2.89 1.50 - 7.00 K/mcL LAB HEMETOLOGY METHOD 11/26/2024 12:14 PM [facility] Lymphocytes Absolute 2.72 1.00 - 5.00 K/mcL LAB HEMETOLOGY METHOD 11/26/2024 12:14 PM [facility] Monocytes Absolute 0.63 0.20 - 1.00 K/mcL LAB HEMETOLOGY METHOD 11/26/2024 12:14 PM [facility] Eosinophils Absolute 0.06 0.00 - 0.50 K/[facility] LAB HEMETOLOGY METHOD 11/26/2024 12:14 PM EDT [facility] Basophils Absolute 0.05 0.00 - 0.20 K/[facility] LAB HEMETOLOGY METHOD 11/26/2024 12:14 PM EDT [facility] Immature Granulocytes Absolute 0.00 0.00 - 0.03 K/[facility] LAB HEMETOLOGY METHOD 11/26/2024 12:14 PM EDT [facility] Blood Venous blood specimen / Unknown Venipuncture / Unknown 11/26/2024 10:46 AM EDT 11/26/2024 12:00 PM EDT Sania Marinelli AIRVEYOR OPERATOR LAB BLOOD ORDERABLES Final Re sult Performing Organization Address City/[facility]/ZIP Co de Phone Number [facility] [address] [place] [address], [place] [phone] * Vitamin D 25 hydroxy (11/26/2024 10:46 AM EDT) Vit D, 25-Hydroxy 57.5 30.0 - 80.0 ng/mL LAB CHEMISTRY METHOD 11/26/2024 4:34 PM EDT [facility] Blood Venous blood specimen / Unknown Venipuncture / Unknown 11/26/2024 10:46 AM EDT 11/26/2024 11:56 AM EDT Sania Marinelli AIRVEYOR OPERATOR LAB BLOOD ORDERABLES Final Re sult [facility] [address] [place] [address], [place] [phone] * Thyroid stimulating hormone (11/26/2024 10:46 AM EDT) TSH 2.66 0.40 - 4.00 mcIU/mL LAB CHEMISTRY METHOD 11/26/2024 4:34 PM EDT [facility] Blood Venous blood specimen / Unknown Venipuncture / Unknown 11/26/2024 10:46 AM EDT 11/26/2024 11:56 AM EDT us Sania Marinelli AIRVEYOR OPERATOR LAB BLOOD ORDERABLES Final Re sult Performing Organization Address [facility]/ZIP Co de Phone Number [facility] [address] [place] [address], [place] [phone] * Hemoglobin A1c (11/26/2024 10:46 AM EDT) Pathologist [facility] Hemoglobin A1C 6.0 <6.5 % LAB CHEMISTRY METHOD 11/26/2024 2:01 PM EDT [facility] Mean Bld Glu Estim. 126 mg/dL LAB CHEMISTRY METHOD 11/26/2024 2:01 PM EDT [facility] Blood Venous blood specimen / Unknown Venipuncture / Unknown 11/26/2024 10:46 AM EDT 11/26/2024 12:00 PM EDT us Sania Marinelli AIRVEYOR OPERATOR LAB BLOOD ORDERABLES Final Re sult Performing Organization Address [facility] de Phone Number [facility] [address] [place] [address], [place] [phone] * (ABNORMAL) Comprehensive metabolic panel (11/26/2024 10:46 AM EDT) Sodium 137 133 - 145 mmol/L LAB CHEMISTRY METHOD 11/26/2024 4:10 PM EDT [facility] Potassium 4.3 3.5 - 5.5 mmol/L LAB CHEMISTRY METHOD 11/26/2024 4:10 PM EDT [facility] Chloride 103 96 - 110 mmol/L LAB CHEMISTRY METHOD 11/26/2024 4:10 PM EDT [facility] CO2 27 21 - 32 mmol/L LAB CHEMISTRY METHOD 11/26/2024 4:10 PM [facility] Anion Gap 7 3 - 11 LAB CHEMISTRY METHOD 11/26/2024 4:10 PM [facility] Glucose 76 70 - 100 mg/dL LAB CHEMISTRY METHOD 11/26/2024 4:10 PM [facility] BUN 23 5 - 25 mg/dL LAB CHEMISTRY METHOD 11/26/2024 4:10 PM [facility] Creatinine 1.21(H) 0.50 - 1.10 mg/dL LAB CHEMISTRY METHOD 11/26/2024 4:10 PM [facility] eGFR 46(L) >=60 mL/min/1. 73m2 LAB CHEMISTRY METHOD 11/26/2024 4:10 PM [facility] Comment:Calculation based on the Chronic Kidney Disease Epidemiology Collaboration (CKD-EPI) equation refit without adjustment for race. BUN/Creatinine Ratio 19.0 LAB CHEMISTRY METHOD 11/26/2024 4:10 PM [facility] Calcium 9.5 8.5 - 10.5 mg/dL LAB CHEMISTRY METHOD 11/26/2024 4:10 PM [facility] AST (SGOT) 34 10 - 42 unit/L LAB CHEMISTRY METHOD 11/26/2024 4:10 PM [facility] ALT (SGPT) 27 10 - 60 unit/L LAB CHEMISTRY METHOD 11/26/2024 4:10 PM [facility] Alkaline Phosphatase 75 42 - 121 unit/L LAB CHEMISTRY METHOD 11/26/2024 4:10 PM [facility] Total Protein 7.4 6.0 - 8.0 g/dL LAB CHEMISTRY METHOD 11/26/2024 4:10 PM [facility] Albumin 4.5 3.2 - 5.0 g/dL LAB CHEMISTRY METHOD 11/26/2024 4:10 PM [facility] Total Bilirubin 0.7 0.0 - 1.4 mg/dL LAB CHEMISTRY METHOD 11/26/2024 4:10 PM EDT [facility] Blood Venous blood specimen / Unknown Venipuncture / Unknown 11/26/2024 10:46 AM EDT 11/26/2024 11:56 AM EDT us Sania Marinelli AIRVEYOR OPERATOR LAB BLOOD ORDERABLES Final Re sult [facility] ([facility]) [facility] [address] [place] [address], [place] [phone] from Last 3 Months Insurance MEDICARE [facility] Care Teams Urban Redevelopment Specialist Relationship Specialty Start Date End Date Sánchez Gracia MD [address] [place] [address] [place] [address] PCP - General 05/03/03
--- OUTSIDE RECORDS SUMMARY | 2025-02-03 14:50 | XMS_ITS | Encounter Summary ---
Author Organization [facility] Address [address] [place] [address] Care Team Providers Care Pig Iron Loader Name Role Phone Sánchez Gracia MD Primary Care Provider [phone] Encounter Details Date Type Department Care Team ([facility] st Contact Info) Description 09/23/2024 Lab Requisition [facility] Lab [address] [facility] [place] [id number] Jeniffer Polo MD [address] [address] Urinary tract infection, site not specified Social [...] Comments BACTERIAL IDENTIFICATION AND SUSCEPTIBILITY, AEROBIC Routine 09/22/2024 12:00 AM EDT Urinary tract infection, site not specified documented in this encounter Results * (ABNORMAL) Bacterial identification and susceptibility, aerobic (09/22/2024 12:00 AM EDT) Culture, Bacterial ID and Sensitivity Escherichia coli(A) JASON 09/24/2024 9:31 AM EDT [facility] Other Urine specimen from urethra / Unknown 09/22/2024 09/23/2024 10:27 AM EDT Narrative Organism Antibiotic Method Susceptibility [...] Escherichia coli Trimethoprim/Sulfamethoxazole JASON <=20 ug/ml: Susceptible Jeniffer Polo MD LAB MICROBIOLOGY - G ENERAL ORDERABLES Final Result [facility] [address] [place] [address], documented in this encounter Visit Diagnoses Diagnosis Urinary tract infection, site not specified documented in this encounter Care Teams Pig Iron Loader Relationship Specialty Start Date End Date Sánchez Gracia MD [address] [place] [address] [place] [address] PCP - General 05/03/03 documented as of this encounter
--- OUTSIDE RECORDS SUMMARY | 2025-02-03 14:50 | XMS_ITS | Patient Health Record ---
[facility] Address [address] [place] [address] Care Team Providers Care Hand Crocheter Name Role Phone YUKI COOK Unavailable [phone] Allergies No Known Allergies Results Component Value Reference Range Flag Notes US RETROPERITONEAL COMPLETE Reviewed date:12/08/2024 03:10:00 PM Interpretation: Performing Lab: Notes/Report: Note See Note [facility], a member of [place] Patient Name: TERRY DUGGAN Date of : 1945 Reason for Exam: US renal Exam Date: 11/30/2024 [id number] EST Report Status: Final Ordering Provider: YUKI [...] area, possibly a [place]omy[place] ([id number]) -------- FINAL REPOR T -------- Dictated By: Vicenta Echeverria i Dictated Date: 12/08/2024 13:59 ET Assigned Physician: Vicenta North Reviewed and Electronically Signed By: Vicenta North Signed Date: 12/08/2024 14:04 ET Workstation ID: [id number] Transcribed By: Self Edit Transcribed Date: 12/08/2024 13:59 ET COMPREHENSIVE METABOLIC PANE L Reviewed date:11/26/2024 04:24:32 PM Interpretation: Performing Lab: Notes/Report: Sodium 137 133-145 mmol/L Potassium 4.3 3.5-5.5 mmol/L Chloride 103 96-110 mmol/L CO2 27 21-32 mmol/L Anion Gap 7 3-11 Glucose 76 70-100 mg/dL BUN 23 5-25 mg/dL Creatinine 1.21 0.50-1.10 mg/dL H eGFR 46 >=60 mL/min/1.73m2 L Calculation based on the Chronic Kidney Disease Epidemiology Collaboration (CKD-EPI) equation refit without adjustment for race. BUN/Creatinine Ratio 19.0 Calcium 9.5 8.5-10.5 mg/dL AST (SGOT) 34 10-42 unit/L ALT (SGPT) 27 10-60 unit/L Alkaline Phosphatase 75 42-121 unit/L Total Protein 7.4 6.0-8.0 g/dL Albumin 4.5 3.2-5.0 g/dL Total Bilirubin 0.7 0.0-1.4 mg/dL LIPID PANEL WITH REFLEX TO D IRECT [...] 40.8 35.0-47.0 % MCV 98.1 79.0-98.0 FL H MCH 31.5 27.0-32.0 pcg MCHC 32.1 32.0-37.0 [...] K/mcL Immature Granulocytes Absolute 0.00 0.00-0.03 K/mcL URINALYSIS WITH REFLEX MICRO SCOPIC Reviewed date:11/26/2024 04:24:32 PM Interpretation: Performing Lab: Notes/Report: Specific [place] Urine 1.022 1.003-1.030 pH, Urine 5.5 5.0-8.0 pH Leukocytes, Urine Trace Negative A Nitrite, Urine Negative Negative Protein, Urine Negative <=Trace mg/dL Glucose, Urine Negative Negative mg/dL Ketones, Urine Trace Negative mg/dL A Urobilinogen, Urine 0.2 0.2-1.0 mg/dL Bilirubin, Urine Negative Negative Blood, Urine Negative Negative RBC, Urine 5.0 0-4 /HPF H WBC, Urine 2.8 0-4 /HPF Squamous Epithelial, Urine 94 0-60 /LPF H Bacteria, Urine Negative Negative /HPF Hyaline Casts, Urine 1.6 0-3 /LPF HEMOGLOBIN A1C Reviewed date:11/26/2024 04:24:32 PM Interpretation: Performing Lab: Notes/Report: Hemoglobin A1C 6.0 <6.5 % Mean Bld Glu Estim. 126 THYROID STIMULATING HORMONE Reviewed date:11/26/2024 04:47:54 PM Interpretation: Performing Lab: Notes/Report: TSH 2.66 0.40-4.00 mcIU/mL VITAMIN D 25 HYDROXY Reviewed date:11/26/2024 04:47:54 PM Interpretation: Performing Lab: Notes/Report: Vit D, 25-Hydroxy 57.5 30.0-80.0 ng/mL Reason For Referral No Information Medications Medication SIG (Take, Route, Frequency, Duration) Notes Start Date End Date Status LORazepam 0.5 MG Tablet Oral; Duration: 15 Days Active Esomeprazole Magnesium 40 MG Capsule Delayed Release TAKE 1 CAPSULE ONCE DAILY Oral; Duration: 90 Days Active Eliquis 5 MG Tablet Oral; Duration: 90 Days Active Methenamine Hippurate 1 GM Tablet Oral; Duration: 90 Days Acti ve Fosfomycin Tromethamine 3 GM Packet PLEASE SEE ATTACHED FOR DETAILED DIRECTIONS Oral; Duration: 3 Days Active Metoprolol Succinate ER 25 MG Tablet Extended Release 24 Hour Oral; Duration: 90 Days Acti ve Cefpodoxime Proxetil 200 MG Tablet 1 tablet with food Orally every 12 hrs; Duration: 5 day(s) 11/29/2024 Active Fluconazole 150 MG Tablet TAKE 1 TABLET (ORAL) DAILY FOR 1 DAYS REPEAT ON DAY 4 IF SYMPTOMS STILL PRESENT Oral; Duration: 2 Days Active Atorvastatin Calcium 40 MG Tablet TAKE 1 TABLET BY MOUTH EVERY DAY Oral; Duration: 90 Days Active Problems Problem Type SNOMED Code ICD Code Onset Dates Problem Status W/U Status Risk Notes Problem Use of anticoagulation (705711132) Chronic anticoagulation (Z79.01) Active confirmed Problem Dyslipidemia (229823940) Dyslipidemia (E78.5) Active confirmed Problem Atrial fibrillation (73264396) PAF (paroxysmal atrial fibrillation) (I48.0) Active confirmed Problem Avitaminosis D (32783407) Avitaminosis D (E55.9) Active confirmed Vital Signs Heart Rate 69 /min 11/26/2024 Oximetry 99 % 11/26/2024 Blood pressure diastolic 70 mm Hg 11/26/2024 Height 64 in 11/26/2024 Blood pressure systolic 130 mm Hg 11/26/2024 Weight 130 lbs 11/26/2024 BMI 22.31 kg/m2 11/26/2024 Encounters Encounter Location Date Provider Diagnosis [facility] [address] [place] [address] 11/26/2024 YUKI JOYCE [facility] [address] [place] [address] 11/29/2024 YUKI DONALHOT [facility] [address] [place] [address] 12/08/2024 YUKI DONALHOT [facility] [address] [place] [address] 12/14/2024 YUKI TYRELT [facility] [address] [place] [address] 12/24/2024 YUKI TYRELT [facility] [address] [facility] [address] [address] 11/26/2024 YUKI COOK PAF (paroxysmal atri al fibrillation) I48.0 ; Chronic anticoagulation Z79.01 ; Dyslipidemia E78.5 ; Right flank pain R10.9 and Encounter for examination of blood pressure without abnormal findings Z01.30 Assessments Encounter Date Diagnosis (ICD Code) Assessment Notes Treatment Notes Treatment Clinical Notes Section Notes 11/26/2024 Chronic anticoagulation (ICD-10 - Z79.01) Will try and track down records from [facility] which likely will be difficult Will [...] software and direct typing Please excuse inadvertent jigger machine operator or typing errors, or uncorrected word substitutions Although every attempt has been made by the provider to proofread this document, occasional misspellings and typographical errors may still be present Due to the previous pandemic, and the use of personal protective equipment (PPE) This may decrease voice recognition accuracy Inadvertent jigger machine operator errors may occur 11/26/2024 PAF (paroxysmal atrial fibrillation) (ICD-10 - I48.0) Will try and track down records from [facility] which likely will be difficult Will [...] software and direct typing Please excuse inadvertent jigger machine operator or typing errors, or uncorrected word substitutions Although every attempt has been made by the provider to proofread this document, occasional misspellings and typographical errors may still be present Due to the previous pandemic, and the use of personal protective equipment (PPE) This may decrease voice recognition accuracy Inadvertent jigger machine operator errors may occur 11/26/2024 Dyslipidemia (ICD-10 - E78.5) Will try and track down records from [facility] which likely will be difficult Will [...] software and direct typing Please excuse inadvertent jigger machine operator or typing errors, or uncorrected word substitutions Although every attempt has been made by the provider to proofread this document, occasional misspellings and typographical errors may still be present Due to the previous pandemic, and the use of personal protective equipment (PPE) This may decrease voice recognition accuracy Inadvertent jigger machine operator errors may occur 11/26/2024 Right flank pain (ICD-10 - R10.9) Will try and track down records from [facility] which likely will be difficult Will [...] software and direct typing Please excuse inadvertent jigger machine operator or typing errors, or uncorrected word substitutions Although every attempt has been made by the provider to proofread this document, occasional misspellings and typographical errors may still be present Due to the previous pandemic, and the use of personal protective equipment (PPE) This may decrease voice recognition accuracy Inadvertent jigger machine operator errors may occur 11/26/2024 Encounter for examination of blood pressure without abnormal findings (ICD-10 - Z01.30) Will try and track down records from [facility] which likely will be difficult Will [...] software and direct typing Please excuse inadvertent jigger machine operator or typing errors, or uncorrected word substitutions Although every attempt has been made by the provider to proofread this document, occasional misspellings and typographical errors may still be present Due to the previous pandemic, and the use of personal protective equipment (PPE) This may decrease voice recognition accuracy Inadvertent jigger machine operator errors may occur Plan Of Treatment Pending [...] Medicare Part B J14 [address] riley Das [id number] Terry Yadav Self - patient is the insured [facility] and [facility] [address] [place] [address] [phone] [id number] Terry Yadav Self - patient is the insured
== END 2025-02-03 12:09 | disposition home or self-care (01) ==
LOC: HO.HKA 11:40
PROVIDERS: PCP Physician Assistant Medical; Visit Provider Internal Medicine Hypertension Specialist
DX: N18.30 Chronic kidney disease, stage 3 unspecified (principal)
CPT/HCPCS: 99214

== ENCOUNTER 2025-02-03 12:27 | Outpatient (REF) | payer MEDICARE, BC, SELFPAY ==
[2025-02-03 14:15] LABS: Anion Gap 11 (12-20); Blood Urea Nitrogen 28 mg/dL (9-16); Calcium 9.6 mg/dL (8.4-10.2); Carbon Dioxide 27 mmol/L (22-29); Chloride 106 mmol/L (96-108); Estimated Glomerular Filt Rate 48; Potassium 4.1 mmol/L (3.3-5.1); Sodium 140 mmol/L (135-145)
[2025-02-04 22:33] LABS: Anti Glomerular Basement Memb <1.0 AI; Proteinase 3 PR3 Antibodies <1.0 AI
[2025-02-07 11:19] LABS: Neutrophil Cyto Ab Screen NEGATIVE (NEGATIVE)
[2025-02-07 15:33] LABS: Anti Nuclear Antibody Screen NEGATIVE (NEGATIVE)
[2025-02-07 23:09] LABS: Prot Elec - Albumin 4.3 g/dL (3.8-4.8); Prot Elec - Alpha1 0.3 g/dL (0.2-0.3); Prot Elec - Alpha2 0.7 g/dL (0.5-0.9); Prot Elec - Beta 1 0.4 g/dL (0.4-0.6); Prot Elec - Beta 2 0.3 g/dL (0.2-0.5); Prot Elec - Gamma 1.0 g/dL (0.8-1.7); Prot Elec - Total Protein 6.9 g/dL (6.1-8.1)
== END 2025-02-03 12:28 | disposition home or self-care (01) ==
LOC: HO.10HDL 12:27
PROVIDERS: Visit Provider Internal Medicine Hypertension Specialist
DX: N18.30 Chronic kidney disease, stage 3 unspecified (principal); Z01.84 Encounter for antibody response examination
CPT/HCPCS: 36415; 80048; 83520; 84165; 86021; 86036; 86038; 86160; 86225; 99212

== ENCOUNTER 2025-02-21 13:12 | Outpatient (REF) | payer MEDICARE, BC, SELFPAY ==
--- NOTE | ~2025-02-21 | US_ITS ---
EXAMINATION: US RETROPERITONEAL LIMITED (RENAL ONLY) CLINICAL INFORMATION: CKD STAGE III COMPARISON: 06/26/2016. TECHNIQUE: Real-time imaging of the kidneys. FINDINGS: RIGHT KIDNEY: 10.7 x 5.0 x 4.7 cm (SAG x AP x TRV). The kidney is normal in size, contour, and echogenicity. Renal cortical thickness is normal. No calculi or focal parenchymal lesions. No hydronephrosis. There is a mid pole mildly complicated cyst measuring 2.0 x 1.4 x 1.9 cm. LEFT KIDNEY: 9.1 x 4.5 x 4.5 cm (SAG x AP x TRV). The kidney is normal in size, contour, and echogenicity. Renal cortical thickness is normal. No focal parenchymal lesions. No hydronephrosis. There are multiple tiny non-shadowing echogenic foci present, nonspecific. US/US renal BI IMPRESSION: 1. No hydronephrosis of either kidney. No definitive calculi present. 2. Mildly complicated cyst in the midpole of the right kidney measuring 2.0 cm. This was present in 2017 and measured 1.5 cm. Such a minimal increase over time suggests benignity. 3. Nonspecific tiny non-shadowing echogenic foci in the left kidney. Electronically signed by: Hao Ortiz MD 02/21/2025 02:20 PM [facility]
--- OUTSIDE RECORDS SUMMARY | 2025-02-21 16:52 | XMS_ITS | Encounter Summary ---
Author Organization [facility] Address [address] [place] [address] Care Team Providers Care Sugar Presser Name Role Phone Sánchez Gracia MD Primary Care Provider [phone] Encounter Details Date Type Department Care Team ([facility] st Contact Info) Description 09/23/2024 Lab Requisition [facility] [address] [facility] [place] [id number] Jeniffer Polo MD [address] [address] Urinary tract infection, site not specified Social [...] Escherichia coli(A) JASON 09/24/2024 9:31 AM EDT [facility] Other Urine specimen from urethra / [...] MICROBIOLOGY - G ENERAL ORDERABLES Final Result [facility] [address] [place] [address], documented in this encounter Visit Diagnoses Diagnosis Urinary tract infection, site not specified documented in this encounter Care Teams Sugar Presser Relationship Specialty Start Date End Date Sánchez Gracia MD [address] [place] [address] [place] [address] PCP - General 05/03/03 documented as of this encounter
--- OUTSIDE RECORDS SUMMARY | 2025-02-21 16:52 | XMS_ITS | Clinical Summary ---
Author Organization [address] Address [address] [place] [address] Phone Care Team Providers Care Concrete Fence Builder Name Role Phone Sánchez Gracia MD Primary Care Provider [phone] Encounters Date Type Department Care Team Description 11/30/2024 12:22 PM EDT - 11/30/2024 11:59 PM EDT Hospital Encounter [facility] [address] [place] [address] Unspecified abdominal pain Discharge Disposition: [...] area, possibly a 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 Teleyanet BOWMAN ([id number]) -------- FINAL REPORT -------- Dictated By: Vicenta North Dictated Date: 12/08/2024 13:59 ET Assigned Physician: Vicenta North Reviewed and Electronically Signed By: Vicenta North Signed Date: 12/08/2024 14:04 ET Workstation ID: [id number] Transcribed By: Self Edit Transcribed Date: 12/08/2024 13:59 ET us Sania Marinelli NP IMG US PROCEDURES Final Resul t * (ABNORMAL) Urinalysis with reflex microscopic (11/26/2024 10:46 AM EDT) Specific [place] Urine 1.022 1.003 - 1.030 LAB URINALYSIS - AUTOMATED METHOD 11/26/2024 12:29 PM [facility] pH, Urine 5.5 5.0 - 8.0 pH LAB URINALYSIS - AUTOMATED METHOD 11/26/2024 12:29 PM [facility] Leukocytes, Urine Trace(A) Negative LAB URINALYSIS - AUTOMATED METHOD 11/26/2024 12:29 PM [facility] Nitrite, Urine Negative Negative LAB URINALYSIS - AUTOMATED METHOD 11/26/2024 12:29 PM [facility] Protein, Urine Negative <=Trace mg/dL LAB URINALYSIS - AUTOMATED METHOD 11/26/2024 12:29 PM [facility] Glucose, Urine Negative Negative mg/dL LAB URINALYSIS - AUTOMATED METHOD 11/26/2024 12:29 PM [facility] Ketones, Urine Trace(A) Negative mg/dL LAB URINALYSIS - AUTOMATED METHOD 11/26/2024 12:29 PM [facility] Urobilinogen, Urine 0.2 0.2 - 1.0 mg/dL LAB URINALYSIS - AUTOMATED METHOD 11/26/2024 12:29 PM [facility] Bilirubin, Urine Negative Negative LAB URINALYSIS - AUTOMATED METHOD 11/26/2024 12:29 PM [facility] Blood, Urine Negative Negative LAB URINALYSIS - AUTOMATED METHOD 11/26/2024 12:29 PM [facility] RBC, Urine 5.0(H) 0 - 4 /HPF LAB URINALYSIS - AUTOMATED METHOD 11/26/2024 12:29 PM [facility] WBC, Urine 2.8 0 - 4 /HPF LAB URINALYSIS - AUTOMATED METHOD 11/26/2024 12:29 PM [facility] Squamous Epithelial, Urine 94(H) 0 - 60 /LPF LAB URINALYSIS - AUTOMATED METHOD 11/26/2024 12:29 PM [facility] Bacteria, Urine Negative Negative /HPF LAB URINALYSIS - AUTOMATED METHOD 11/26/2024 12:29 PM EDT [facility] Hyaline Casts, Urine 1.6 0 - 3 /LPF LAB URINALYSIS - AUTOMATED METHOD 11/26/2024 12:29 PM [facility] Urine Urine specimen obtained by clean catch procedure / Unknown Non-blood Collection / Unknown 11/26/2024 10:46 AM EDT 11/26/2024 11:58 AM EDT us Sania Marinelli DIGESTER LAB URINE ORDERABLES Final Re sult [facility] [address] [place] [address], [place] [phone] * Lipid panel with reflex to direct LDL (11/26/2024 10:46 AM EDT) Cholesterol 162 0 - 200 mg/dL LAB CHEMISTRY METHOD 11/26/2024 4:10 PM [facility] Triglycerides 111 0 - 150 mg/dL LAB CHEMISTRY METHOD 11/26/2024 4:10 PM [facility] HDL 70 >=40 mg/dL LAB CHEMISTRY METHOD 11/26/2024 4:10 PM [facility] LDL Calculated 70 0 - 100 mg/dL LAB CHEMISTRY METHOD 11/26/2024 4:10 PM [facility] Comment:Estimated LDL Calcul ated using equation: Total cholesterol - HDL cholesterol - (Triglycerides/5) VLDL Cholesterol Obi 22.2 mg/dL LAB CHEMISTRY METHOD 11/26/2024 4:10 PM [facility] Non HDL Chol. (LDL+VLDL) 92 <145 mg/dL LAB CHEMISTRY METHOD 11/26/2024 4:10 PM [facility] Chol/HDL Ratio 2.3 0.0 - 4.4 LAB CHEMISTRY METHOD 11/26/2024 4:10 PM [facility] Blood Venous blood specimen / Unknown Venipuncture / Unknown 11/26/2024 10:46 AM EDT 11/26/2024 11:56 AM EDT us Sania Marinelli DIGESTER LAB BLOOD ORDERABLES Final Re sult [facility] [address] [place] [address], * (ABNORMAL) CBC auto differential (11/26/2024 10:46 AM EDT) WBC 6.4 4.8 - 10.8 K/mcL LAB HEMETOLOGY METHOD 11/26/2024 12:14 PM EDT [facility] RBC 4.20 3.80 - 4.80 M/mcL LAB HEMETOLOGY METHOD 11/26/2024 12:14 PM EDT [facility] Hemoglobin 13.1 11.5 - 16.0 g/dL LAB HEMETOLOGY METHOD 11/26/2024 12:14 PM EDT [facility] Hematocrit 40.8 35.0 - 47.0 % LAB HEMETOLOGY METHOD 11/26/2024 12:14 PM EDT [facility] MCV 98.1(H) 79.0 - 98.0 FL LAB HEMETOLOGY METHOD 11/26/2024 12:14 PM EDT [facility] MCH 31.5 27.0 - 32.0 pcg LAB HEMETOLOGY METHOD 11/26/2024 12:14 PM EDT [facility] MCHC 32.1 32.0 - 37.0 g/dL LAB HEMETOLOGY METHOD 11/26/2024 12:14 PM EDT [facility] RDW 13.1 11.0 - 15.0 % LAB HEMETOLOGY METHOD 11/26/2024 12:14 PM EDT [facility] Platelets 213 130 - 400 K/mcL LAB HEMETOLOGY METHOD 11/26/2024 12:14 PM [facility] MPV 11.0 7.0 - 11.0 FL LAB HEMETOLOGY METHOD 11/26/2024 12:14 PM [facility] NRBC 0.0 <1.0 % LAB HEMETOLOGY METHOD 11/26/2024 12:14 PM [facility] NRBC Absolute 0.00 <0.10 K/mcL LAB HEMETOLOGY METHOD 11/26/2024 12:14 PM [facility] Neutrophils Relative 45.6 % LAB HEMETOLOGY METHOD 11/26/2024 12:14 PM [facility] Lymphocytes Relative 42.8 % LAB HEMETOLOGY METHOD 11/26/2024 12:14 PM [facility] Monocytes Relative 9.9 % LAB HEMETOLOGY METHOD 11/26/2024 12:14 PM [facility] Eosinophils Relative 0.9 % LAB HEMETOLOGY METHOD 11/26/2024 12:14 PM [facility] Basophils Relative 0.8 % LAB HEMETOLOGY METHOD 11/26/2024 12:14 PM [facility] Immature Granulocytes Relative 0.0 % LAB HEMETOLOGY METHOD 11/26/2024 12:14 PM [facility] Neutrophils Absolute 2.89 1.50 - 7.00 K/mcL LAB HEMETOLOGY METHOD 11/26/2024 12:14 PM [facility] Lymphocytes Absolute 2.72 1.00 - 5.00 K/mcL LAB HEMETOLOGY METHOD 11/26/2024 12:14 PM [facility] Monocytes Absolute 0.63 0.20 - 1.00 K/mcL LAB HEMETOLOGY METHOD 11/26/2024 12:14 PM [facility] Eosinophils Absolute 0.06 0.00 - 0.50 K/[facility] LAB HEMETOLOGY METHOD 11/26/2024 12:14 PM EDT [facility] Basophils Absolute 0.05 0.00 - 0.20 K/[facility] LAB HEMETOLOGY METHOD 11/26/2024 12:14 PM EDT [facility] Immature Granulocytes Absolute 0.00 0.00 - 0.03 K/[facility] LAB HEMETOLOGY METHOD 11/26/2024 12:14 PM EDT [facility] Blood Venous blood specimen / Unknown Venipuncture / Unknown 11/26/2024 10:46 AM EDT 11/26/2024 12:00 PM EDT Sania Marinelli DIGESTER LAB BLOOD ORDERABLES Final Re sult Performing Organization Address City/[facility]/ZIP Co de Phone Number [facility] [address] [place] [address], [place] [phone] * Vitamin D 25 hydroxy (11/26/2024 10:46 AM EDT) Vit D, 25-Hydroxy 57.5 30.0 - 80.0 ng/mL LAB CHEMISTRY METHOD 11/26/2024 4:34 PM EDT [facility] Blood Venous blood specimen / Unknown Venipuncture / Unknown 11/26/2024 10:46 AM EDT 11/26/2024 11:56 AM EDT Sania Marinelli DIGESTER LAB BLOOD ORDERABLES Final Re sult [facility] [address] [place] [address], [place] [phone] * Thyroid stimulating hormone (11/26/2024 10:46 AM EDT) TSH 2.66 0.40 - 4.00 mcIU/mL LAB CHEMISTRY METHOD 11/26/2024 4:34 PM EDT [facility] Blood Venous blood specimen / Unknown Venipuncture / Unknown 11/26/2024 10:46 AM EDT 11/26/2024 11:56 AM EDT us Sania Marinelli DIGESTER LAB BLOOD ORDERABLES Final Re sult Performing Organization Address [facility]/ZIP Co de Phone Number [facility] [address] [place] [address], [place] [phone] * Hemoglobin A1c (11/26/2024 10:46 AM EDT) Pathologist [facility] Hemoglobin A1C 6.0 <6.5 % LAB CHEMISTRY METHOD 11/26/2024 2:01 PM EDT [facility] Mean Bld Glu Estim. 126 mg/dL LAB CHEMISTRY METHOD 11/26/2024 2:01 PM EDT [facility] Blood Venous blood specimen / Unknown Venipuncture / Unknown 11/26/2024 10:46 AM EDT 11/26/2024 12:00 PM EDT us Sania Marinelli DIGESTER LAB BLOOD ORDERABLES Final Re sult Performing Organization Address [facility] de Phone Number [facility] [address] [place] [address], [place] [phone] * (ABNORMAL) Comprehensive metabolic panel (11/26/2024 10:46 AM EDT) Sodium 137 133 - 145 mmol/L LAB CHEMISTRY METHOD 11/26/2024 4:10 PM EDT [facility] Potassium 4.3 3.5 - 5.5 mmol/L LAB CHEMISTRY METHOD 11/26/2024 4:10 PM EDT [facility] Chloride 103 96 - 110 mmol/L LAB CHEMISTRY METHOD 11/26/2024 4:10 PM EDT [facility] CO2 27 21 - 32 mmol/L LAB CHEMISTRY METHOD 11/26/2024 4:10 PM [facility] Anion Gap 7 3 - 11 LAB CHEMISTRY METHOD 11/26/2024 4:10 PM [facility] Glucose 76 70 - 100 mg/dL LAB CHEMISTRY METHOD 11/26/2024 4:10 PM [facility] BUN 23 5 - 25 mg/dL LAB CHEMISTRY METHOD 11/26/2024 4:10 PM [facility] Creatinine 1.21(H) 0.50 - 1.10 mg/dL LAB CHEMISTRY METHOD 11/26/2024 4:10 PM [facility] eGFR 46(L) >=60 mL/min/1. 73m2 LAB CHEMISTRY METHOD 11/26/2024 4:10 PM [facility] Comment:Calculation based on the Chronic Kidney Disease Epidemiology Collaboration (CKD-EPI) equation refit without adjustment for race. BUN/Creatinine Ratio 19.0 LAB CHEMISTRY METHOD 11/26/2024 4:10 PM [facility] Calcium 9.5 8.5 - 10.5 mg/dL LAB CHEMISTRY METHOD 11/26/2024 4:10 PM [facility] AST (SGOT) 34 10 - 42 unit/L LAB CHEMISTRY METHOD 11/26/2024 4:10 PM [facility] ALT (SGPT) 27 10 - 60 unit/L LAB CHEMISTRY METHOD 11/26/2024 4:10 PM [facility] Alkaline Phosphatase 75 42 - 121 unit/L LAB CHEMISTRY METHOD 11/26/2024 4:10 PM [facility] Total Protein 7.4 6.0 - 8.0 g/dL LAB CHEMISTRY METHOD 11/26/2024 4:10 PM [facility] Albumin 4.5 3.2 - 5.0 g/dL LAB CHEMISTRY METHOD 11/26/2024 4:10 PM [facility] Total Bilirubin 0.7 0.0 - 1.4 mg/dL LAB CHEMISTRY METHOD 11/26/2024 4:10 PM EDT [facility] Blood Venous blood specimen / Unknown Venipuncture / Unknown 11/26/2024 10:46 AM EDT 11/26/2024 11:56 AM EDT us Sania Marinelli DIGESTER LAB BLOOD ORDERABLES Final Re sult [facility] ([facility] [address] [place] [address], [place] [phone] from Last 3 Months Insurance MEDICARE [facility] Care Teams Concrete Fence Builder Relationship Specialty Start Date End Date Sánchez Gracia MD [address] [place] [address] [place] [address] PCP - General 05/03/03
--- OUTSIDE RECORDS SUMMARY | 2025-02-21 16:52 | XMS_ITS | Encounter Summary ---
Author Organization [facility] Address [address] [place] [address] Care Team Providers Care Trousseau Consultant Name Role Phone Sánchez Gracia MD Primary Care Provider [phone] Encounter Details Date Type Department Care Team ([facility] st Contact Info) Description 10/15/2024 Lab Requisition [facility] - Main Lab [address] [facility] [place] [id number] Erika Chávez, COLBY [address] [place] [address] Urinary tract infection, site not specified Social [...] Escherichia coli(A) JASON 10/16/2024 7:48 AM EDT [facility] Other Urine specimen from urethra [...] JASON <=0.25 ug/ml: Susceptible Escherichia coli Amikacin AJSON 2 ug/ml: Susceptible Escherichia coli Gentamicin JASON <=1 ug/ml: Susceptible Escherichia coli Ciprofloxacin JASON <=0.06 ug/ml: Susceptible Escherichia coli Levofloxacin JASON <=0.12 ug/ml: Susceptible Escherichia coli Nitrofurantoin JASON <=16 ug/ml: Susceptible Escherichia coli Trimethoprim/Sulfamethoxazole JASON <=20 ug/ml: Susceptible us E[facility] MICROBIOLOGY - GENERAL ORDER RIGO Final Result [facility] [address] [place] [address], documented in this encounter Visit Diagnoses Diagnosis Urinary tract infection, site not specified documented in this encounter Care Teams Trousseau Consultant Relationship Specialty Start Date End Date Sánchez Gracia MD [address] [place] [address] [place] [address] PCP - General 05/03/03 documented as of this encounter
== END 2025-02-21 13:13 | disposition home or self-care (01) ==
LOC: HO.HMGCX 13:12
PROVIDERS: PCP Physician Assistant Medical; Visit Provider Internal Medicine Hypertension Specialist
DX: N18.30 Chronic kidney disease, stage 3 unspecified (principal)
CPT/HCPCS: 76775

== ENCOUNTER → 2025-02-21 13:26 | Outpatient (BNV) | payer MEDICARE, BC, SELFPAY | PROVIDERS: PCP Physician Assistant Medical; Visit Provider Radiology Diagnostic Radiology | DX: N18.30 Chronic kidney disease, stage 3 unspecified (principal); N28.1 Cyst of kidney, acquired | CPT/HCPCS: 76775 ==

== ENCOUNTER 2025-03-03 10:36 | Outpatient (AMB) | payer MEDICARE, BC, SELFPAY ==
[2025-03-03 10:41] VITALS: BP 110/62; PULSE 81; O2SAT 88; BMI 19.7
--- NOTE | 2025-03-03 10:41 | HO.NEPHOV ---
Vital Signs 03/03/25 10:41 Height 5 ft 6 in Weight 122 lb BMI 19.7 BP 110/62 Blood Pressure Location Lt brachial Position Sitting Pulse 81 Pulse Source Pulse Oximeter Pulse Oximetry (%) 88 L Oxygen Delivery Method Room Air Intake Visit Reasons: 4 wks w/ labs & Ultrasound Aerotriangulation Specialist Required: No Accompanied by: Self / Same As Patient Allergies nitrofurantoin (From MACROBID) Allergy (Intermediate, Verified 03/03/25 10:43) SWELLING Sulfa (Sulfonamide Antibiotics) (SULFA (SULFONAMIDE ANTIBIOTICS)) Allergy (Intermediate, Verified 03/03/25 10:43) SWELLIING scallops (SCALLOPS) Adverse Reaction (Intermediate, Verified 03/03/25 10:43) VOMITING Medication List - Last Reconciled 03/03/25 by Cali Damon MD apixaban (Eliquis) 5 mg PO BID ascorbate calcium (vitamin C) 500 mg PO DAILY atorvastatin 40 mg PO DAILY coenzyme Q10 100 mg PO DAILY esomeprazole magnesium 40 mg PO DAILY lactobacillus combination no.9 (Adult 50 Plus Probiotic) 4,000 mmu cells PO DAILY lorazepam 0.25 mg (1/2 x 0.5 mg) PO Q12H PRN methenamine hippurate 1 g PO BID metoprolol succinate ER 25 mg PO BEDTIME HPI Comments Details: History of Present Illness - The patient is a 79-year-old female presenting with evaluation of kidney function and management of chronic conditions. - Chronic Kidney Disease: Stable kidney function with recent creatinine increase to 1.2 mg/dL. - Atrial Fibrillation: Managed with metoprolol and anticoagulation, annual follow-ups. - GERD: Managed with omeprazole, dosage reduction planned. - Constipation: Managed with stool softeners and [place], dietary adjustments advised. - History of Oophorectomy: Bilateral oophorectomy for ovarian cysts. - History of Rib Fracture: Occurred two years ago, required surgery. - History of Wrist, Arm, Elbow, and Shoulder Fractures: Resulted from a fall, surgical repair done. - Urinary Tract Infections: Recurrent, recent infection treated, avoiding Bactrim. 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 A previous visit revealed hematuria, which was suspected to be contamination from hemorrhoids she had at the time. A subsequent comprehensive workup was within normal limits. Her creatinine has been stable over the last 5-6 years, measuring 1.09 currently, compared to 1.07 six years ago, with stable values in between, indicating a stable baseline. A recent ultrasound revealed a simple renal cyst, which was noted to be stable and nearly unchanged compared to an imaging study from 2017. The patient reports a 3-pound weight loss since her last visit, which she attributes to stress and anxiety about her health. She also notes that food does not taste good to her. The patient is a former smoker, having quit about 40 years ago. She denies a history of prediabetes. She notes inaccuracies in her medical record, including a history of rib surgery and vaping, both of which she denies. Results - Labs: Creatinine is 1.09, stable from 1.07 six years prior. - A previous comprehensive serological workup for hematuria was within normal limits. - Urinalysis from the last visit was contaminated due to hemorrhoids. - Imaging: Renal ultrasound shows a simple cyst, which is benign and stable compared to a 2017 study. [facility] Medical History (Updated 12/23/24 @ 13:27 by COLBY Jones) Constipation History of frequent urinary tract infections Pre-diabetes CKD (chronic kidney disease) Paroxysmal atrial fibrillation Hyperlipidemia Surgical History History of colonoscopy (~08/03/12) Hx of hammer toe correction Family History Father AAA (abdominal aortic aneurysm) CVD (cardiovascular disease) Mother No problems noted. Social History (Updated 03/03/25 @ 10:48 by JENIFER Copeland) Housing: Condominium Patient Tobacco Use Status: Former Tobacco user e-Cigarette/Vaping Use: Never Used service: No Current occupational status: retired Cognitive needs: No Hearing needs: No Vision needs: Yes (rx glasses) Physical Exam Exam Exam: Physical Exam General: Awake. Comfortable. Lost 3 pounds since last visit. HENT: Neck supple. Mucosa moist. Reports sharp pain when moving eyes, likely stress-related. Pulmonary: Lungs aeration equal. No rales. Cardiology: Heart S1-S2 heard. No gallop. Blood pressure is low, which is a good sign. Abdomen: Soft. Non tender. Bowel sounds normal. Simple cyst found on ultrasound, benign. Neurologic: No involuntary movements. No myoclonus. Extremities: No edema. No rash. Vital Signs: Last Vital Signs Pulse 81 03/03/25 10:41 BP 110/62 03/03/25 10:41 Pulse Ox 88 L 03/03/25 10:41 Oxygen Delivery Method Room Air 03/03/25 10:41 BMI result Body Mass Index 19.7 Results Reviewed Results Reviewed: USG US/US renal BI IMPRESSION: 1. No hydronephrosis of either kidney. No definitive calculi present. 2. Mildly complicated cyst in the midpole of the right kidney measuring 2.0 cm. This was present in 2017 and measured 1.5 cm. Such a minimal increase over time suggests benignity. 3. Nonspecific tiny non-shadowing echogenic foci in the left kidney. Nephrology Results: Hgb, (12.0-16.0) 13.5 g/dl 01/10/25 WBC, (4.8-10.8) 6.5 X10*3/uL 01/10/25 Plt Count, (160-400) 236 X10*3/uL 01/10/25 Sodium, (135-145) 140 mmol/L 02/03/25 Potassium, (3.3-5.1) 4.1 mmol/L 02/03/25 Chloride, (96-108) 106 mmol/L 02/03/25 Carbon Dioxide, (22-29) 27 mmol/L 02/03/25 BUN, (9-16) 28 mg/dL H 02/03/25 Creatinine, (0.5-1.4) 1.09 mg/dL 02/03/25 Calcium, (8.4-10.2) 9.6 mg/dL 02/03/25 Urine Protein, (Neg-Trace) Negative mg/dL Today Urine Creatinine 110.76 mg/dL 01/10/25 Renal US 02/21/25 Assessment & Plan Assessment & Plan (1) CKD (chronic kidney disease): Code(s): N18.9 - Chronic kidney disease, unspecified Category: Medical Qualifiers: Chronic kidney disease stage: stage 3 (moderate) Chronic kidney disease stage 3 subtype: unspecified whether 3a or 3b Qualified Code(s): N18.30 - Chronic kidney disease, stage 3 unspecified Plan Plan 1. Stable Chronic Kidney Disease - The patient's kidney function is stable, with recent labs and ultrasound results being close to normal range - Her creatinine of 1.09 is considered her baseline, showing no significant exchange engineer the past six years. - The patient was reassured about her stable condition. - No further blood tests are ordered at this time. - She is advised to maintain adequate fluid intake and to avoid NSAIDs such as Aleve, Advil, and Motrin. - The patient may discontinue Nexium. - Follow-up is scheduled for one year. 2. Hematuria - There was a concern for hematuria at a prior visit, which was likely due to contamination from hemorrhoids. - A urinalysis will be obtained today for follow-up. 3. Simple Renal Cyst - An ultrasound identified a simple cyst that is stable and unchanged from 2017. - This is a benign finding that requires no intervention. Orders: Orders Basic Metabolic Panel 11 Months N18.30 - Chronic kidney disease, stage 3 unspecified UA and rflx microscopic Today N18.30 - Chronic kidney disease, stage 3 unspecified Coding Level of Care Code Est Pt Level 4 (28126) Diagnoses Stage 3 chronic kidney disease, unspecified whether stage 3a or 3b CKD N18.30 Chronic kidney disease stage: stage 3 (moderate) Chronic kidney disease stage 3 subtype: unspecified whether 3a or 3b
== END 2025-03-03 11:01 | disposition home or self-care (01) ==
LOC: HO.HKA 10:37
PROVIDERS: PCP Physician Assistant Medical; Visit Provider Internal Medicine Hypertension Specialist
DX: N18.30 Chronic kidney disease, stage 3 unspecified (principal)
CPT/HCPCS: 99214

== ENCOUNTER 2025-03-03 10:36 | Outpatient (REF) | payer MEDICARE, BC, SELFPAY ==
[2025-03-03 12:14] LABS: Appearance Urine Clear; Glucose Urine UA Negative (Negative); PH 5.5 (5.0-9.0); Specific Gravity - Urine 1.020 (1.005-1.025); UMIC TRIGGER UA YES
== END 2025-03-03 10:37 | disposition home or self-care (01) ==
LOC: HO.LAB 10:36
PROVIDERS: PCP Physician Assistant Medical; Visit Provider Internal Medicine Hypertension Specialist
DX: N18.30 Chronic kidney disease, stage 3 unspecified (principal)
CPT/HCPCS: 81001; 81003; 99212